=== PATIENT | male | born 1945 | race Caucasian/White ===

== ENCOUNTER 2022-06-04 13:17 | Emergency (ER) | payer OTHER ==
--- OUTSIDE RECORDS SUMMARY | 2022-06-04 13:24 | XMS REPORT | Continuity of Care Document ---
:1945 Author Organization [facility] t Address [address] [place] [address] Care Team Providers Name Role Phone PRASHANTH BENAVIDES Primary Care Physician Unavailable Prashanth Benavides Attending Clinician Unavailable ANNE-MARIE WOODWARD Attending Clinician Unavailable MELISSA VILLEGAS Attending Clinician Unavailable RUPALI BYRNE Attending Clinician Unavailable PABLO SANABRIA Attending Clinician Unavailable CHUCK LEARY Attending Clinician Unavailable ANNE-MARIE WOODWARD Admitting Clinician Unavailable MELISSA VILLEGAS Admitting Clinician Unavailable Payers Payer Name Policy Type Policy Number Effective Date Expiration Date S alyssa AET[employer] MEDICARE HMO [id number] 2016 POS PPO 00:00:00 Problems Condition Condition Condition Status Onset Resolution Last Treating Co mments Source Name Details Category Date Date Treatment Clinician Date Chronic Chronic Disease Active 2018- [facility] hypercapni hypercapni 2-14 Lydia kes c c 00:00: Medical respirator respirator 00 Ce nter y failure y failure Acute Acute Disease Active 2019- [facility] diastolic diastolic 2-14 Luke s congestive congestive 00:00: Ks dical heart heart 00 Center failure failure Atrial Atrial Disease Active 2018- [facility] fibrillati fibrillati 2-13 Lydia kes on on 00:00: Medical 00 Center Gastrointe Gastrointe Disease Active 2018-0 M ethodi stinal stinal 4-20 st hemorrhage hemorrhage 00:00: Ho spita 00 l AAA AAA Disease Active [facility] (abdominal (abdominal 6-21 Lydia kes aortic aortic 00:00: Medical aneurysm) aneurysm) 00 Cent er AAA AAA Disease Active [facility] (abdominal (abdominal 6-20 Lydia kes aortic aortic 00:00: Medical aneurysm) aneurysm) 00 Cent er without without rupture rupture 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 [facility] artery artery 00:00: Medical 00 Potter RBBB RBBB Disease Active [facility] 6-20 [facility] 00:00: Medical 00 [place] Essential Essential Disease Active [facility] hypertensi hypertensi 6-20 Lydia kes on on 00:00: Medical 00 Potter [id number] Pain, Problem Active Commo n [id number] joint, Spirit shoulder, - [facility] left [facility] Allergies, Adverse Reactions, Alerts Allergy Allergy Status Severity Reaction(s) Onset Inactive Treating Comm ents Source Name Type Date Date Clinician Atorvast Propensi Active Muscle Method i atin ty to 01-[address] adverse 00:00: Hospita reaction 00 l s to drug NO KNOWN Allergy Active [facility] Social History Social Habit Start Date Stop Date Quantity Comments Source History SDOH [facility] Alcohol Std Drinks Medica l Center History SDOH [facility] Alcohol Binge Medical Dereck ter History SDOH [facility] Alcohol Comment Medical C enter History of Tobacco Common Spirit - Use [facility] Alcohol intake 2018-06-14 2018-06-[address] [facility] [address] Servando es 00:00:00 00:00:00 non-drinker of Medical Ce nter alcohol (finding) History SDOH 2018-06-14 2018-06-[address] [facility] Alcohol Frequency 00:00:00 00:00:00 [facility] Cigarettes smoked 2017-11-16 2017-11-[address] current (pack per 00:00:00 00:00:00 Hospita l day) - Reported Cigarette 2017-11-16 2017-11-16 [facility] pack-years 00:00:00 00:00:00 Hospital Tobacco use and 2016-01-28 2016-01-[address] Lydia kes exposure 00:00:00 00:00:00 Medical Center Sex Ass[birth year] At [birth year] KODI Oakes 00:00:00 00:00:00 [facility] Smoking Status Start Date Stop Date Source Former Smoker 2022-04-16 00:00:00 2022-04-16 00:00:00 Common S pirit - [facility] Medications Ordered Filled Start Stop Current Ordering Indication Dosage Frequency Signature Comments Components Source Medication Medication Date Date Medication? Clinician (SIG) Name Name irbesartan Yes 150mg Q.5D Take 150 Me thodi (AVAPRO) 3-[address] 150 MG 08:33: mouth 2 Hospita tablet 04 (two) l times a day. amLODIPine Yes 10mg QD Take 10 mg M ethodi (NORVASC) 5 3-[address] MG tablet 08:33: daily. Hospit a 04 l GLUCOSAMINE Yes 1{tbl} QD Take 1 Me thodi SULFATE 3-[address] (GLUCOSAMIN 08:33: mouth Hospi ta E ORAL) 04 daily. l cholecalcif Yes 1000U QD Take 1,000 Methodi cleo, 3-[address] vitamin D3, 08:33: mouth Hospi ta (VITAMIN 04 daily. l D3) 1,000 unit tablet amIODarone Yes 200mg QD Take 200 Me thodi (PACERONE) 3-[address] 200 MG 08:33: mouth Hospita tablet 04 daily. l furosemide Yes QD Take by Meth estiven (LASIX) 40 3-[address] mg/4 mL 08:33: daily. Hospita solution 04 l oral solution metoprolol Yes 25mg Q.5D Take 25 mg M ethodi tartrate 3-[address] (LOPRESSOR) 08:33: (two) Hospi ta 25 mg 04 times a l tablet day. potassium Yes 20meq Q.5D Take 20 Meth estiven chloride 3-[address] (KLOR-CON) 08:33: mouth 2 Hosp olegario 20 mEq 04 (two) l packet times a day. Take tablet 20 meq pravastatin Yes 20mg QD Take 20 mg Methodi (PRAVACHOL) 3-[address] 20 MG 08:33: nightly. Hospita tablet 04 l MULTIVITAMI Yes QD Take by Met hodi N ORAL 3-[address] 08:33: daily. Hospita 04 l pravastatin 2018-08 Yes 20mg QD Take [address] (PRAVACHOL) 2-20 by mouth Luke s 20 MG 13:54: daily. Medical tablet 34 Center aspirin 81 2018-08 Yes 81mg QD Take [address] MG chewable 2-20 by mouth Luke s tablet 13:54: daily. Medical 34 Center omega-3 2018-08 Yes 2g Q.5D Take [address] acid ethyl 2-20 by mouth 2 Servando es esters 13:54: (two) Medical (LOVAZA) 1 34 times Center gram daily. capsule multivitami 2018-08 Yes 1{capsu QD Take [address] n capsule 2-20 le} capsule by Jesus Manuel s 13:54: mouth Medical 34 daily. Center glucosamine 2018-08 Yes 1{tbl} Q.[id number] Take [address] -chondroiti 2-20 [id number] tablet by Varun n 500-400 13:54: 3D mouth 3 Medic al mg tablet 34 (three) Center times daily. cholecalcif 2018-08 Yes 1000U QD Take 1,[address] cleo 2-20 Units by Varun (VITAMIN 13:54: mouth Medical D3) 1,000 34 daily. Center unit (25 mcg) tablet Vitamin D Vitamin D No Vitamin D Potassium Potassium No Potassium Furosemide Furosemide No Furosemide Apixaban Apixaban No Apixaban Repatha Repatha No Repatha Glucosamine Glucosamine No Glucosamin e ASA-APAP-Ca ASA-APAP-Ca No ASA-APAP-C ff Buffered ff Buffered aff Buffered Amiodarone Amiodarone No Amiodarone HCl HCl HCl amLODIPine amLODIPine No amLODIPine Benzoate Benzoate Benzoate Glucosamine Glucosamine No Glucosamin e ASA-APAP-Ca ASA-APAP-Ca No ASA-APAP-C ff Buffered ff Buffered aff Buffered amLODIPine amLODIPine No amLODIPine Benzoate Benzoate Benzoate Furosemide Furosemide No Furosemide Potassium Potassium No Potassium Amiodarone Amiodarone No Amiodarone HCl HCl HCl Vitamin D Vitamin D No Vitamin D Apixaban Apixaban No Apixaban Repatha Repatha No Repatha Vital Signs Vital Name Observation Time Observation Value Comments Source height 2022-04-15 15:15:00 74 [in_i] Common [facility] weight 2022-04-15 15:15:00 220 [lb_av] [facility] temperature 2022-04-15 15:15:00 98.1 [degF] [facility] bmi 2022-04-15 15:15:00 28.24 kg/m2 Common [facility] blood pressure 2022-04-15 15:15:00 136 mm[Hg] [facility] - systolic [facility] blood pressure 2022-04-15 15:15:00 80 mm[Hg] [facility] - diastolic [facility] height 2022-03-25 15:00:00 74 [in_i] [facility] weight 2022-03-25 15:00:00 220 [lb_av] [facility] temperature 2022-03-25 15:00:00 98.6 [degF] [facility] bmi 2022-03-25 15:00:00 28.24 kg/m2 [facility] blood pressure 2022-03-25 15:00:00 136 mm[Hg] [facility] - systolic [facility] blood pressure 2022-03-25 15:00:00 82 mm[Hg] [facility] - diastolic [facility] Procedures This patient has no known procedures. Plan of Care Planned Activity Planned Date Details Comments Source Future Scheduled 2022-04-09 INFLUENZA VACCINE (#1) [facility] 00:00:00 [code = INFLUENZA Medical Ce nter VACCINE (#1)] Future Scheduled 2021-08-[address] [facility] Test 00:00:00 (12+) [code = Medical Center DEPRESSION SCREENING (12+)] Future Scheduled 2021-08-09 FALLS RISK SCREENING [facility] Test 00:00:00 [code = FALLS RISK Medical C enter SCREENING] Future Scheduled 2017-08-[address] [facility] Test 00:00:00 WELLNESS (YEAR 2 or Medical Center FIRST YEAR if no IPPE) [code = MEDICARE ANNUAL WELLNESS (YEAR 2 or FIRST YEAR if no IPPE)] Future Scheduled 1994 SHINGLES VACCINES ([address] [facility] Test 00:00:00 of 2) [code = SHINGLES Medic al Center VACCINES (1 of 2)] Future Scheduled 1963 DTAP/TDAP/TD VACCINES [facility] Test 00:00:00 (1 - Tdap) [code = Medical C enter DTAP/TDAP/TD VACCINES (1 - Tdap)] Future Scheduled 1962 HEPATITIS C SCREENING [facility] Test 00:00:00 [code = HEPATITIS C Medical Center SCREENING] Future Scheduled 1950 PNEUMOCOCCAL 65+ YRS [facility] Test 00:00:00 (1 - PCV) [code = Medical Ce nter PNEUMOCOCCAL 65+ YRS (1 - PCV)] Future Scheduled 1944 COVID-19 VACCINE (#1) [facility] Test 00:00:00 [code = COVID-[address] VACCINE (#1)] Encounters Start End Encounter Admission Attending Care Care Encounter Source Date/Time Date/Time Type Type Clinicians Facility Department ID 2022-03-27 Outpatient Benavides, STLMLC STLMLC [id number] Common 08:16:02 Prashanth [id number] [facility] 2022-03-25 Outpatient STLMLC STLMLC [id number] Common 14:49:01 [id number] [facility] 2022-04-15 2022-04-15 OFFICE STLMLC STLMLC [id number] Co mmon 00:00:00 00:00:00 VISIT EST Spir it PT LEVEL 3 [facility] 2022-03-25 2022-03-25 OFFICE STLMLC STLMLC [id number] Co mmon 00:00:00 00:00:00 VISIT EST Spir it PT LEVEL 3 [facility] 2020-10-21 2020-10-21 Outpatient [facility] [id number] [place] 00:00:00 00:00:00 ANNE-MARIE [place] i st 2018-10-19 2018-10-19 Outpatient [facility] [id number] SLE 00:00:00 00:00:00 Results Test Description Test Time Test Comments Results Result Comments Source PHOSPHORUS 2019-07-28 06:12:00 Test Item Value Reference Range Interpretation Comme nts PHOSPHORUS (BEAKER) (test code = 604) 2.9 mg/dL 2.3-4.7 [id number] 06:12:00 Test Item Value Reference Range Interpretation Comments MAGNESIUM (BEAKER) (test code = 2.1 mg/dL 1.6-2.6 627) BASIC METABOLIC [id number] 06:12:00 Test Item Value Reference Range Interpretation Comments SODIUM (BEAKER) 142 meq/L 136-145 (test code = 381) POTASSIUM (BEAKER) 4.5 meq/L 3.5-5.1 (test code = 379) CHLORIDE (BEAKER) 101 meq/L 98-107 (test code = 382) CO2 (BEAKER) (test 32 meq/L 22-29 H code = 355) BLOOD UREA NITROGEN 27 mg/dL 7-21 H (BEAKER) (test code = 354) CREATININE (BEAKER) 0.82 mg/dL 0.57-1.25 (test code = 358) GLUCOSE RANDOM 93 mg/dL 70-105 (BEAKER) (test code = 652) CALCIUM (BEAKER) 8.8 mg/dL 8.4-10.2 (test code = 697) EGFR (BEAKER) (test 92 mL/min/1.73 ESTIMA JERE GFR IS code = 1092) sq m NOT ACCURATE CREATININE CLEARANCE IN PREDICTING GLOMERULAR FILTRATION RATE . ESTIMATED GFR I S NOT APPLICABLE FOR DIALYSIS PATIEN TS. CBC W/PLT COUNT & AUTO [id number] 06:00:00 Test Item Value Reference Range Interpretation Comments WHITE BLOOD CELL COUNT (BEAKER) 5.6 K/ L 3.5-10.5 (test code = 775) RED BLOOD CELL COUNT (BEAKER) 3.85 M/ L 4.63-6.08 L (test code = 761) HEMOGLOBIN (BEAKER) (test code = 13.1 GM/DL 13.7-17.5 L 410) HEMATOCRIT (BEAKER) (test code = 42.4 % 40.1-51.0 411) MEAN CORPUSCULAR VOLUME (BEAKER) 110.1 fL 79.0-92.2 H (test code = 753) MEAN CORPUSCULAR HEMOGLOBIN 34.0 pg 25.7-32.2 H (BEAKER) (test code = 751) MEAN CORPUSCULAR HEMOGLOBIN CONC 30.9 GM/DL 32.3-36.5 L (BEAKER) (test code = 752) RED CELL DISTRIBUTION WIDTH 13.7 % 11.6-14.4 (BEAKER) (test code = 412) PLATELET COUNT (BEAKER) (test 179 K/CU MM 150-450 code = 756) MEAN PLATELET VOLUME (BEAKER) 11.6 fL 9.4-12.4 (test code = 754) NUCLEATED RED BLOOD CELLS 0 /100 WBC 0-0 (BEAKER) (test code = 413) NEUTROPHILS RELATIVE PERCENT 58 % (BEAKER) (test code = 429) LYMPHOCYTES RELATIVE PERCENT 19 % (BEAKER) (test code = 430) MONOCYTES RELATIVE PERCENT 14 % (BEAKER) (test code = 431) EOSINOPHILS RELATIVE PERCENT 8 % (BEAKER) (test code = 432) BASOPHILS RELATIVE PERCENT 1 % (BEAKER) (test code = 437) NEUTROPHILS ABSOLUTE COUNT 3.27 K/ L 1.78-5.38 (BEAKER) (test code = 670) LYMPHOCYTES ABSOLUTE COUNT 1.08 K/ L 1.32-3.57 L (BEAKER) (test code = 414) MONOCYTES ABSOLUTE COUNT (BEAKER) 0.76 K/ L 0.30-0.82 (test code = 415) EOSINOPHILS ABSOLUTE COUNT 0.44 K/ L 0.04-0.54 (BEAKER) (test code = 416) BASOPHILS ABSOLUTE COUNT (BEAKER) 0.06 K/ L 0.01-0.08 (test code = 417) IMMATURE GRANULOCYTES-RELATIVE 0 % 0-1 PERCENT (BEAKER) (test code = 2801) [id number] 06:07:00 Test Item Value Reference Range Interpretation Comments MAGNESIUM (BEAKER) 2.0 mg/dL 1.6-2.6 Specimen slightly (test code = 627) hemolyzed [id number] 06:07:00 Test Item Value Reference Range Interpretation Comments PHOSPHORUS (BEAKER) 3.0 mg/dL 2.3-4.7 Specimen slightly (test code = 604) hemolyzed BASIC METABOLIC [id number] 06:07:00 Test Item Value Reference Range Interpretation Comments SODIUM (BEAKER) 139 meq/L 136-145 (test code = 381) POTASSIUM (BEAKER) 4.8 meq/L 3.5-5.1 Specimen slightly (test code = 379) hemolyzed CHLORIDE (BEAKER) 98 meq/L 98-107 (test code = 382) CO2 (BEAKER) (test 34 meq/L 22-29 H code = 355) BLOOD UREA NITROGEN 28 mg/dL 7-21 H (BEAKER) (test code = 354) CREATININE (BEAKER) 0.96 mg/dL 0.57-1.25 Specimen slightly (test code = 358) hemolyzed GLUCOSE RANDOM 101 mg/dL 70-105 (BEAKER) (test code = 652) CALCIUM (BEAKER) 8.5 mg/dL 8.4-10.2 (test code = 697) EGFR (BEAKER) (test 76 mL/min/1.73 ESTIMA JERE GFR IS code = 1092) sq m NOT ACCURATE CREATININE CLEARANCE IN PREDICTING GLOMERULAR FILTRATION RATE . ESTIMATED GFR I S NOT APPLICABLE FOR DIALYSIS PATIEN TS. CBC W/PLT COUNT & AUTO [id number] 05:34:00 Test Item Value Reference Range Interpretation Comments WHITE BLOOD CELL COUNT (BEAKER) 6.9 K/ L 3.5-10.5 (test code = 775) RED BLOOD CELL COUNT (BEAKER) 3.77 M/ L 4.63-6.08 L (test code = 761) HEMOGLOBIN (BEAKER) (test code = 12.8 GM/DL 13.7-17.5 L 410) HEMATOCRIT (BEAKER) (test code = 41.6 % 40.1-51.0 411) MEAN CORPUSCULAR VOLUME (BEAKER) 110.3 fL 79.0-92.2 H (test code = 753) MEAN CORPUSCULAR HEMOGLOBIN 34.0 pg 25.7-32.2 H (BEAKER) (test code = 751) MEAN CORPUSCULAR HEMOGLOBIN CONC 30.8 GM/DL 32.3-36.5 L (BEAKER) (test code = 752) RED CELL DISTRIBUTION WIDTH 13.8 % 11.6-14.4 (BEAKER) (test code = 412) PLATELET COUNT (BEAKER) (test 183 K/CU MM 150-450 code = 756) MEAN PLATELET VOLUME (BEAKER) 11.3 fL 9.4-12.4 (test code = 754) NUCLEATED RED BLOOD CELLS 0 /100 WBC 0-0 (BEAKER) (test code = 413) NEUTROPHILS RELATIVE PERCENT 62 % (BEAKER) (test code = 429) LYMPHOCYTES RELATIVE PERCENT 17 % (BEAKER) (test code = 430) MONOCYTES RELATIVE PERCENT 14 % (BEAKER) (test code = 431) EOSINOPHILS RELATIVE PERCENT 6 % (BEAKER) (test code = 432) BASOPHILS RELATIVE PERCENT 1 % (BEAKER) (test code = 437) NEUTROPHILS ABSOLUTE COUNT 4.30 K/ L 1.78-5.38 (BEAKER) (test code = 670) LYMPHOCYTES ABSOLUTE COUNT 1.17 K/ L 1.32-3.57 L (BEAKER) (test code = 414) MONOCYTES ABSOLUTE COUNT (BEAKER) 0.96 K/ L 0.30-0.82 H (test code = 415) EOSINOPHILS ABSOLUTE COUNT 0.42 K/ L 0.04-0.54 (BEAKER) (test code = 416) BASOPHILS ABSOLUTE COUNT (BEAKER) 0.06 K/ L 0.01-0.08 (test code = 417) IMMATURE GRANULOCYTES-RELATIVE 0 % 0-1 PERCENT (BEAKER) (test code = 2801) POCT-LACTIC ACID, [id number] 13:15:00 Test Item Value Reference Range Interpretation Comments POC-LACTIC ACID, 1.2 mmol/L 0.4-1.3 TESTED AT [facility] [address] ARTERIAL (BEAKER[facility] [place] (test code = 2804) [address] POCT-BLOOD GASES, [id number] 13:15:00 Test Item Value Reference Range Interpretation Comments TEMP, CELSIUS-POC 37.0 (BEAKER) (test code = 1834) FIO2-POC (BEAKER) TESTED AT [facility] 67[address] (test code = 1835) [facility] [address] PH, ARTERIAL-POC 7.420 7.350-7.450 (BEAKER) (test code = 1836) PCO2, ARTERIAL-POC 62.0 mm Hg 35.0-45.0 H (BEAKER) (test code = 1837) PO2, ARTERIAL-POC 66.0 mm Hg 80.0-90.0 L (BEAKER) (test code = 1838) SO2, ARTERIAL-POC 92.0 % 96.0-97.0 L (BEAKER) (test code = 1839) HCO3, ARTERIAL-POC 40.3 meq/L 21.0-29.0 HH (BEAKER) (test code = 1840) BASE EXCESS, 16.0 meq/L -2.0-3.0 H ARTERIAL-POC (BEAKER) (test code = 1841) [id number] 13:15:00 Test Item Value Reference Range Interpretation Comments POC-SODIUM (BEAKER) 138 meq/L 135-148 TESTED A T [place] [address] (test code = 1542) DONA [facility] [address] [id number] 13:15:00 Test Item Value Reference Range Interpretation Comments POC-POTASSIUM 3.8 meq/L 3.6-5.5 TESTED AT [place] [address] ([facility] (test code [facility] [address] = 1540) [id number] 13:15:00 Test Item Value Reference Range Interpretation Comments POC-GLUCOSE (BEAKER) 166 mg/dL 70-110 H TESTED AT [place] [address] (test code = 1855) [place] [address] POCT-CALCIUM [id number] 13:15:00 Test Item Value Reference Range Interpretation Comments POC-CALCIUM IONIZED 1.16 mmol/L 1.12-1.27 TESTED A [place] [address] ([facility] (test code = [facility] [place] [address]) [address] [id number] 13:15:00 Test Item Value Reference Range Interpretation Comments POC-HEMATOCRIT 42 % 40-50 TESTED AT [place] [address] ([facility] (test code = [facility] Aleksandar [facility] [address]) [id number] 13:15:00 Test Item Value Reference Range Interpretation Comments POC-HEMOGLOBIN 14.3 g/dL 13.0-16.8 TESTED AT [place] [address] ([facility] ([facility] = 1856) [id number] AT [place] [address] [facility] [place] [address] BASIC METABOLIC [id number] 05:16:00 Test Item Value Reference Range Interpretation Comments SODIUM (BEAKER) 144 meq/L 136-145 (test code = 381) POTASSIUM (BEAKER) 4.2 meq/L 3.5-5.1 (test code = 379) CHLORIDE (BEAKER) 97 meq/L 98-107 L (test code = 382) CO2 (BEAKER) (test 41 meq/L 22-29 HH code = 355) BLOOD UREA NITROGEN 26 mg/dL 7-21 H (BEAKER) (test code = 354) CREATININE (BEAKER) 0.91 mg/dL 0.57-1.25 (test code = 358) GLUCOSE RANDOM 107 mg/dL 70-105 H (BEAKER) (test code = 652) CALCIUM (BEAKER) 8.7 mg/dL 8.4-10.2 (test code = 697) EGFR (BEAKER) (test 81 mL/min/1.73 ESTIMA JERE GFR IS code = 1092) sq m NOT ACCURATE CREATININE CLEARANCE IN PREDICTING GLOMERULAR FILTRATION RATE . ESTIMATED GFR I S NOT APPLICABLE FOR DIALYSIS YULI TS. [id number] 05:07:00 Test Item Value Reference Range Interpretation Comments PHOSPHORUS (BEAKER) (test code = 3.8 mg/dL 2.3-4.7 604) [id number] 05:07:00 Test Item Value Reference Range Interpretation Comments MAGNESIUM (BEAKER) (test code = 2.1 mg/dL 1.6-2.6 627) CBC W/PLT COUNT & AUTO [id number] 04:53:00 Test Item Value Reference Range Interpretation Comments WHITE BLOOD CELL COUNT (BEAKER) 7.3 K/ L 3.5-10.5 (test code = 775) RED BLOOD CELL COUNT (BEAKER) 3.88 M/ L 4.63-6.08 L (test code = 761) HEMOGLOBIN (BEAKER) (test code = 13.3 GM/DL 13.7-17.5 L 410) HEMATOCRIT (BEAKER) (test code = 42.8 % 40.1-51.0 411) MEAN CORPUSCULAR VOLUME (BEAKER) 110.3 fL 79.0-92.2 H (test code = 753) MEAN CORPUSCULAR HEMOGLOBIN 34.3 pg 25.7-32.2 H (BEAKER) (test code = 751) MEAN CORPUSCULAR HEMOGLOBIN CONC 31.1 GM/DL 32.3-36.5 L (BEAKER) (test code = 752) RED CELL DISTRIBUTION WIDTH 13.9 % 11.6-14.4 (BEAKER) (test code = 412) PLATELET COUNT (BEAKER) (test 171 K/CU MM 150-450 code = 756) MEAN PLATELET VOLUME (BEAKER) 11.0 fL 9.4-12.4 (test code = 754) NUCLEATED RED BLOOD CELLS 0 /100 WBC 0-0 (BEAKER) (test code = 413) NEUTROPHILS RELATIVE PERCENT 66 % (BEAKER) (test code = 429) LYMPHOCYTES RELATIVE PERCENT 14 % (BEAKER) (test code = 430) MONOCYTES RELATIVE PERCENT 15 % (BEAKER) (test code = 431) EOSINOPHILS RELATIVE PERCENT 4 % (BEAKER) (test code = 432) BASOPHILS RELATIVE PERCENT 1 % (BEAKER) (test code = 437) NEUTROPHILS ABSOLUTE COUNT 4.82 K/ L 1.78-5.38 (BEAKER) (test code = 670) LYMPHOCYTES ABSOLUTE COUNT 1.02 K/ L 1.32-3.57 L (BEAKER) (test code = 414) MONOCYTES ABSOLUTE COUNT (BEAKER) 1.05 K/ L 0.30-0.82 H (test code = 415) EOSINOPHILS ABSOLUTE COUNT 0.31 K/ L 0.04-0.54 (BEAKER) (test code = 416) BASOPHILS ABSOLUTE COUNT (BEAKER) 0.05 K/ L 0.01-0.08 (test code = 417) IMMATURE GRANULOCYTES-RELATIVE 0 % 0-1 PERCENT (BEAKER) (test code = 2801) [id number] 04:52:00 Test Item Value Reference Range Interpretation Comments PARTIAL THROMBOPLASTIN TIME 72.6 seconds 22.5-36.0 H (BEAKER) (test code = 760) RAD, HAND, 2 VIEWS, [id number] 01:39:00Reason for exam:->Rt index finger swellingFINAL REPORT CLINICAL HISTORY: Rt index finger swelling TECHNIQUE: 2 views of the right hand COMPARISON: None IMPRESSION: The bones of the hand are intact without evidence of fracture or dislocation. Scattered degenerative changes of the hand, most notably in the IP joints. Slightoffset of the second digit DIP with widening of the ulnar aspect of the joint space likely degenerative however correlate clinically this could be posttraumatic. Soft tissue swelling about the second digit. No radiopaque foreign body. Normal bone mineralization. Signed: Osmin Schaeffer Verified Date/Time: 07/26/2019 01:39:05 [id number] 21:56:00 Test Item Value Reference Range Interpretation Comments PARTIAL THROMBOPLASTIN TIME 75.0 seconds 22.5-36.0 H (BEAKER) (test code = 760) [id number] 13:56:00 Test Item Value Reference Range Interpretation Comments PARTIAL THROMBOPLASTIN TIME 94.1 seconds 22.5-36.0 H (BEAKER) (test code = 760) [id number] 05:50:00 Test Item Value Reference Range Interpretation Comments PARTIAL THROMBOPLASTIN TIME 91.3 seconds 22.5-36.0 H (BEAKER) (test code = 760) BASIC METABOLIC [id number] 05:44:00 Test Item Value Reference Range Interpretation Comments SODIUM (BEAKER) 142 meq/L 136-145 (test code = 381) POTASSIUM (BEAKER) 3.6 meq/L 3.5-5.1 (test code = 379) CHLORIDE (BEAKER) 93 meq/L 98-107 L (test code = 382) CO2 (BEAKER) (test 40 meq/L 22-29 HH code = 355) BLOOD UREA NITROGEN 24 mg/dL 7-21 H (BEAKER) (test code = 354) CREATININE (BEAKER) 0.94 mg/dL 0.57-1.25 (test code = 358) GLUCOSE RANDOM 108 mg/dL 70-105 H (BEAKER) (test code = 652) CALCIUM (BEAKER) 8.9 mg/dL 8.4-10.2 (test code = 697) EGFR (BEAKER) (test 78 mL/min/1.73 ESTIMA JERE GFR IS code = 1092) sq m NOT ACCURATE CREATININE CLEARANCE IN PREDICTING GLOMERULAR FILTRATION RATE . ESTIMATED GFR I S NOT APPLICABLE FOR DIALYSIS PATIEN TS. URIC [id number] 05:37:00 Test Item Value Reference Range Interpretation Comments URIC ACID (BEAKER) (test code = 8.5 mg/dL 2.6-7.2 H 773) [id number] 05:37:00 Test Item Value Reference Range Interpretation Comments MAGNESIUM (BEAKER) (test code = 2.0 mg/dL 1.6-2.6 627) [id number] 05:37:00 Test Item Value Reference Range Interpretation Comments PHOSPHORUS (BEAKER) (test code = 3.7 mg/dL 2.3-4.7 604) CBC W/PLT COUNT & AUTO [id number] 05:34:00 Test Item Value Reference Range Interpretation Comments WHITE BLOOD CELL COUNT (BEAKER) 9.7 K/ L 3.5-10.5 (test code = 775) RED BLOOD CELL COUNT (BEAKER) 3.93 M/ L 4.63-6.08 L (test code = 761) HEMOGLOBIN (BEAKER) (test code = 13.5 GM/DL 13.7-17.5 L 410) HEMATOCRIT (BEAKER) (test code = 43.3 % 40.1-51.0 411) MEAN CORPUSCULAR VOLUME (BEAKER) 110.2 fL 79.0-92.2 H (test code = 753) MEAN CORPUSCULAR HEMOGLOBIN 34.4 pg 25.7-32.2 H (BEAKER) (test code = 751) MEAN CORPUSCULAR HEMOGLOBIN CONC 31.2 GM/DL 32.3-36.5 L (BEAKER) (test code = 752) RED CELL DISTRIBUTION WIDTH 13.8 % 11.6-14.4 (BEAKER) (test code = 412) PLATELET COUNT (BEAKER) (test 196 K/CU MM 150-450 code = 756) MEAN PLATELET VOLUME (BEAKER) 10.9 fL 9.4-12.4 (test code = 754) NUCLEATED RED BLOOD CELLS 0 /100 WBC 0-0 (BEAKER) (test code = 413) NEUTROPHILS RELATIVE PERCENT 70 % (BEAKER) (test code = 429) LYMPHOCYTES RELATIVE PERCENT 14 % (BEAKER) (test code = 430) MONOCYTES RELATIVE PERCENT 14 % (BEAKER) (test code = 431) EOSINOPHILS RELATIVE PERCENT 2 % (BEAKER) (test code = 432) BASOPHILS RELATIVE PERCENT 0 % (BEAKER) (test code = 437) NEUTROPHILS ABSOLUTE COUNT 6.73 K/ L 1.78-5.38 H (BEAKER) (test code = 670) LYMPHOCYTES ABSOLUTE COUNT 1.31 K/ L 1.32-3.57 L (BEAKER) (test code = 414) MONOCYTES ABSOLUTE COUNT (BEAKER) 1.37 K/ L 0.30-0.82 H (test code = 415) EOSINOPHILS ABSOLUTE COUNT 0.20 K/ L 0.04-0.54 (BEAKER) (test code = 416) BASOPHILS ABSOLUTE COUNT (BEAKER) 0.04 K/ L 0.01-0.08 (test code = 417) IMMATURE GRANULOCYTES-RELATIVE 0 % 0-1 PERCENT (BEAKER) (test code = 2801) CT, [id number] 14:00:00Oral contrastAnesthesia:->NoneFINAL REPORT ABDOMINAL AND PELVIS CT DATED 07/24/2019 COMPARISON: July 20, 2018 CLINICAL INFORMATION: AAA, monitoring TECHNIQUE: Axial images of the abdomen and pelvis were obtained from diaphragm to the pubic symphysis with GI and intravenous contrast. This exam was performedaccording to our departmental dose-optimization program, which includes automated exposure control, adjustment of the mA and/or kV according to patient size and/or use of interactive reconstruction technique. COMMENT: There is trace left pleural effusion. Subsegmental atelectasis is seen in the lingula, right mid, and both lower lobes. Liver and spleen are normal in size without focal abnormality. Gal lbladder is distended. No gallstone or biliary dilatation is noted. Pancreas and adrenals are unremarkable. Both kidneys are normal in size and functioning. No hydronephrosis, hydroureter, urolithiasisis seen. A 3.8 x 4.7 cm and 1.1 x 1.6 cm cysts are seen in the upper pole right kidney. A 1.7 x 1.6 cm cyst is seen in the inferior pole right kidney. Diverticular disease is seen in the large bowel without diverticulitis. The small bowel and appendix are normal in caliber. Abdominal aortic aneurysm is present with aortobiiliac iliac and the stent. Abdominal aortic aneurysm measures approximately 3.8x 4.4 cm, previously 3.8 x 4.4 cm. No endovascular leak is seen. This is stable as compared to the prior study. No mass, adenopathy or ascites is present. IMPRESSION: 1. Stable abdominal aortic aneurysm with aortobiiliac stent.2. No abdominal aortic endostent leak.3. Diverticulosis without diverticulitis.4. Right renal cysts. Signed: Lou Singer MDReport Verified Date/Time: 07/24/2019 14:00:02 Reading Location: [facility] C013Y CT Body Reading Room BASIC METABOLIC [id number] 06:43:00 Test Item Value Reference Range Interpretation Comments SODIUM (BEAKER) 140 meq/L 136-145 (test code = 381) POTASSIUM (BEAKER) 3.6 meq/L 3.5-5.1 (test code = 379) CHLORIDE (BEAKER) 94 meq/L 98-107 L (test code = 382) CO2 (BEAKER) (test 35 meq/L 22-29 H code = 355) BLOOD UREA NITROGEN 22 mg/dL 7-21 H (BEAKER) (test code = 354) CREATININE (BEAKER) 0.99 mg/dL 0.57-1.25 (test code = 358) GLUCOSE RANDOM 99 mg/dL 70-105 (BEAKER) (test code = 652) CALCIUM (BEAKER) 8.9 mg/dL 8.4-10.2 (test code = 697) EGFR (BEAKER) (test 74 mL/min/1.73 ESTIMA JERE GFR IS code = 1092) sq m NOT ACCURATE CREATININE CLEARANCE IN PREDICTING GLOMERULAR FILTRATION RATE . ESTIMATED GFR I S NOT APPLICABLE FOR DIALYSIS PATIEN TS. [id number] 04:51:00 Test Item Value Reference Range Interpretation Comments PHOSPHORUS (BEAKER) (test code = 3.6 mg/dL 2.3-4.7 604) [id number] 04:51:00 Test Item Value Reference Range Interpretation Comments MAGNESIUM (BEAKER) (test code = 1.9 mg/dL 1.6-2.6 627) BASIC METABOLIC [id number] 04:51:00 Test Item Value Reference Range Interpretation Comments SODIUM (BEAKER) 139 meq/L 136-145 (test code = 381) POTASSIUM (BEAKER) 3.6 meq/L 3.5-5.1 (test code = 379) CHLORIDE (BEAKER) 92 meq/L 98-107 L (test code = 382) CO2 (BEAKER) (test 36 meq/L 22-29 H code = 355) BLOOD UREA NITROGEN 23 mg/dL 7-21 H (BEAKER) (test code = 354) CREATININE (BEAKER) 1.02 mg/dL 0.57-1.25 (test code = 358) GLUCOSE RANDOM 97 mg/dL 70-105 (BEAKER) (test code = 652) CALCIUM (BEAKER) 8.8 mg/dL 8.4-10.2 (test code = 697) EGFR (BEAKER) (test 71 mL/min/1.73 ESTIMA JERE GFR IS code = 1092) sq m NOT ACCURATE CREATININE CLEARANCE IN PREDICTING GLOMERULAR FILTRATION RATE . ESTIMATED GFR I S NOT APPLICABLE FOR DIALYSIS PATILANEY CORRIGAN [id number] 04:20:00 Test Item Value Reference Range Interpretation Comments PARTIAL THROMBOPLASTIN TIME 79.6 seconds 22.5-36.0 H (BEAKER) (test code = 760) CBC W/PLT COUNT & AUTO [id number] 04:09:00 Test Item Value Reference Range Interpretation Comments WHITE BLOOD CELL COUNT (BEAKER) 10.2 K/ L 3.5-10.5 (test code = 775) RED BLOOD CELL COUNT (BEAKER) 3.97 M/ L 4.63-6.08 L (test code = 761) HEMOGLOBIN (BEAKER) (test code = 13.4 GM/DL 13.7-17.5 L 410) HEMATOCRIT (BEAKER) (test code = 43.4 % 40.1-51.0 411) MEAN CORPUSCULAR VOLUME (BEAKER) 109.3 fL 79.0-92.2 H (test code = 753) MEAN CORPUSCULAR HEMOGLOBIN 33.8 pg 25.7-32.2 H (BEAKER) (test code = 751) MEAN CORPUSCULAR HEMOGLOBIN CONC 30.9 GM/DL 32.3-36.5 L (BEAKER) (test code = 752) RED CELL DISTRIBUTION WIDTH 13.8 % 11.6-14.4 (BEAKER) (test code = 412) PLATELET COUNT (BEAKER) (test 193 K/CU MM 150-450 code = 756) MEAN PLATELET VOLUME (BEAKER) 10.8 fL 9.4-12.4 (test code = 754) NUCLEATED RED BLOOD CELLS 0 /100 WBC 0-0 (BEAKER) (test code = 413) NEUTROPHILS RELATIVE PERCENT 72 % (BEAKER) (test code = 429) LYMPHOCYTES RELATIVE PERCENT 12 % (BEAKER) (test code = 430) MONOCYTES RELATIVE PERCENT 13 % (BEAKER) (test code = 431) EOSINOPHILS RELATIVE PERCENT 2 % (BEAKER) (test code = 432) BASOPHILS RELATIVE PERCENT 1 % (BEAKER) (test code = 437) NEUTROPHILS ABSOLUTE COUNT 7.30 K/ L 1.78-5.38 H (BEAKER) (test code = 670) LYMPHOCYTES ABSOLUTE COUNT 1.25 K/ L 1.32-3.57 L (BEAKER) (test code = 414) MONOCYTES ABSOLUTE COUNT (BEAKER) 1.31 K/ L 0.30-0.82 H (test code = 415) EOSINOPHILS ABSOLUTE COUNT 0.24 K/ L 0.04-0.54 (BEAKER) (test code = 416) BASOPHILS ABSOLUTE COUNT (BEAKER) 0.05 K/ L 0.01-0.08 (test code = 417) IMMATURE GRANULOCYTES-RELATIVE 0 % 0-1 PERCENT (BEAKER) (test code = 2801) BLOOD GAS, [id number] 12:04:00 Test Item Value Reference Range Interpretation Comments PH ARTERIAL (BEAKER) (test code = 7.49 7.35-7.45 H 383) PCO2 ARTERIAL (BEAKER) (test code 57 mmHg 35-45 H = 384) PO2 ARTERIAL (BEAKER) (test code 44 mmHg 80-90 L = 385) O2 SATURATION ARTERIAL (BEAKER) 83.1 % 96.0-97.0 L (test code = 386) HCO3 ARTERIAL (BEAKER) (test code 42 mmol/L 21-29 HH = 388) BASE EXCESS ARTERIAL (BEAKER) 16.0 mmol/L -2.0-3.0 H (test code = 387) PATIENT TEMPERATURE (BEAKER) 36.7 C (test code = 1818) FIO2 (BEAKER) (test code = 1819) 21.0 % BASIC METABOLIC [id number] 07:47:00 Test Item Value Reference Range Interpretation Comments SODIUM (BEAKER) 140 meq/L 136-145 (test code = 381) POTASSIUM (BEAKER) 3.4 meq/L 3.5-5.1 L (test code = 379) CHLORIDE (BEAKER) 92 meq/L 98-107 L (test code = 382) CO2 (BEAKER) (test 41 meq/L 22-29 HH code = 355) BLOOD UREA NITROGEN 18 mg/dL 7-21 (BEAKER) (test code = 354) CREATININE (BEAKER) 0.82 mg/dL 0.57-1.25 (test code = 358) GLUCOSE RANDOM 103 mg/dL 70-105 (BEAKER) (test code = 652) CALCIUM (BEAKER) 8.8 mg/dL 8.4-10.2 (test code = 697) EGFR (BEAKER) (test 92 mL/min/1.73 ESTIMA JERE GFR IS code = 1092) sq m NOT ACCURATE CREATININE CLEARANCE IN PREDICTING GLOMERULAR FILTRATION RATE . ESTIMATED GFR I S NOT APPLICABLE FOR DIALYSIS PATIEN TS. [id number] 07:34:00 Test Item Value Reference Range Interpretation Comments PARTIAL THROMBOPLASTIN TIME 78.3 seconds 22.5-36.0 H (BEAKER) (test code = 760) [id number] 07:09:00 Test Item Value Reference Range Interpretation Comments PHOSPHORUS (BEAKER) (test code = 3.0 mg/dL 2.3-4.7 604) [id number] 07:09:00 Test Item Value Reference Range Interpretation Comments MAGNESIUM (BEAKER) (test code = 1.9 mg/dL 1.6-2.6 627) CBC W/PLT COUNT & AUTO [id number] 06:45:00 Test Item Value Reference Range Interpretation Comments WHITE BLOOD CELL COUNT (BEAKER) 9.5 K/ L 3.5-10.5 (test code = 775) RED BLOOD CELL COUNT (BEAKER) 4.11 M/ L 4.63-6.08 L (test code = 761) HEMOGLOBIN (BEAKER) (test code = 14.0 GM/DL 13.7-17.5 410) HEMATOCRIT (BEAKER) (test code = 45.2 % 40.1-51.0 411) MEAN CORPUSCULAR VOLUME (BEAKER) 110.0 fL 79.0-92.2 H (test code = 753) MEAN CORPUSCULAR HEMOGLOBIN 34.1 pg 25.7-32.2 H (BEAKER) (test code = 751) MEAN CORPUSCULAR HEMOGLOBIN CONC 31.0 GM/DL 32.3-36.5 L (BEAKER) (test code = 752) RED CELL DISTRIBUTION WIDTH 14.1 % 11.6-14.4 (BEAKER) (test code = 412) PLATELET COUNT (BEAKER) (test 199 K/CU MM 150-450 code = 756) MEAN PLATELET VOLUME (BEAKER) 10.8 fL 9.4-12.4 (test code = 754) NUCLEATED RED BLOOD CELLS 0 /100 WBC 0-0 (BEAKER) (test code = 413) NEUTROPHILS RELATIVE PERCENT 70 % (BEAKER) (test code = 429) LYMPHOCYTES RELATIVE PERCENT 14 % (BEAKER) (test code = 430) MONOCYTES RELATIVE PERCENT 13 % (BEAKER) (test code = 431) EOSINOPHILS RELATIVE PERCENT 2 % (BEAKER) (test code = 432) BASOPHILS RELATIVE PERCENT 1 % (BEAKER) (test code = 437) NEUTROPHILS ABSOLUTE COUNT 6.61 K/ L 1.78-5.38 H (BEAKER) (test code = 670) LYMPHOCYTES ABSOLUTE COUNT 1.31 K/ L 1.32-3.57 L (BEAKER) (test code = 414) MONOCYTES ABSOLUTE COUNT (BEAKER) 1.26 K/ L 0.30-0.82 H (test code = 415) EOSINOPHILS ABSOLUTE COUNT 0.22 K/ L 0.04-0.54 (BEAKER) (test code = 416) BASOPHILS ABSOLUTE COUNT (BEAKER) 0.05 K/ L 0.01-0.08 (test code = 417) IMMATURE GRANULOCYTES-RELATIVE 0 % 0-1 PERCENT (BEAKER) (test code = 2801) [id number] 01:15:00 Test Item Value Reference Range Interpretation Comments PARTIAL THROMBOPLASTIN TIME 74.9 seconds 22.5-36.0 H (BEAKER) (test code = 760) Prior to initiating [id number] 18:46:00 Test Item Value Reference Range Interpretation Comments PARTIAL THROMBOPLASTIN TIME 60.3 seconds 22.5-36.0 H (BEAKER) (test code = 760) [id number] 11:40:00 Test Item Value Reference Range Interpretation Comments PARTIAL THROMBOPLASTIN TIME 53.6 seconds 22.5-36.0 H (BEAKER) (test code = 760) RAD, CHEST, 1 VIEW, NON [id number] 11:22:00Reason for exam:- >hYPOXEMIAShould this be performed at the bedside?->YesFINAL REPORT Chest, 1 view. History: Hypoxemia. Comparison: 07/21/2019. Impression: Lung volumes remain low. There are bibasilar opacities which may reflect atelectasis, unchanged from the prior examination. There is no evidence for large focal consolidation, pneumothorax, or significant pleural effusion. The cardiomediastinal silhouette is stable in appearance. No acute osseous a bnormality identified. Signed: Cayetano Dickersoneport Verified Date/Time: 07/22/2019 11:22:36 Reading Location: [address] Ortho Consult Reading Room MAGNESIUM 2019-07-22 05:21:00 Test Item Value Reference Range Interpretation Comments MAGNESIUM (BEAKER) 2.0 mg/dL 1.6-2.6 Specimen slightly (test code = 627) hemolyzed [id number] 05:21:00 Test Item Value Reference Range Interpretation Comments PHOSPHORUS (BEAKER) 3.2 mg/dL 2.3-4.7 Specimen slightly (test code = 604) hemolyzed BASIC METABOLIC [id number] 05:21:00 Test Item Value Reference Range Interpretation Comments SODIUM (BEAKER) 140 meq/L 136-145 (test code = 381) POTASSIUM (BEAKER) 3.9 meq/L 3.5-5.1 Specimen slightly (test code = 379) hemolyzed CHLORIDE (BEAKER) 95 meq/L 98-107 L (test code = 382) CO2 (BEAKER) (test 38 meq/L 22-29 H code = 355) BLOOD UREA NITROGEN 23 mg/dL 7-21 H (BEAKER) (test code = 354) CREATININE (BEAKER) 0.85 mg/dL 0.57-1.25 Specimen slightly (test code = 358) hemolyzed GLUCOSE RANDOM 95 mg/dL 70-105 (BEAKER) (test code = 652) CALCIUM (BEAKER) 8.5 mg/dL 8.4-10.2 (test code = 697) EGFR (BEAKER) (test 88 mL/min/1.73 ESTIMA JERE GFR IS code = 1092) sq m NOT ACCURATE CREATININE CLEARANCE IN PREDICTING GLOMERULAR FILTRATION RATE . ESTIMATED GFR I S NOT APPLICABLE FOR DIALYSIS PATIEN TS. CBC W/PLT COUNT & AUTO [id number] 04:59:00 Test Item Value Reference Range Interpretation Comments WHITE BLOOD CELL COUNT (BEAKER) 8.6 K/ L 3.5-10.5 (test code = 775) RED BLOOD CELL COUNT (BEAKER) 3.69 M/ L 4.63-6.08 L (test code = 761) HEMOGLOBIN (BEAKER) (test code = 12.5 GM/DL 13.7-17.5 L 410) HEMATOCRIT (BEAKER) (test code = 41.5 % 40.1-51.0 411) MEAN CORPUSCULAR VOLUME (BEAKER) 112.5 fL 79.0-92.2 H (test code = 753) MEAN CORPUSCULAR HEMOGLOBIN 33.9 pg 25.7-32.2 H (BEAKER) (test code = 751) MEAN CORPUSCULAR HEMOGLOBIN CONC 30.1 GM/DL 32.3-36.5 L (BEAKER) (test code = 752) RED CELL DISTRIBUTION WIDTH 14.2 % 11.6-14.4 (BEAKER) (test code = 412) PLATELET COUNT (BEAKER) (test 185 K/CU MM 150-450 code = 756) MEAN PLATELET VOLUME (BEAKER) 11.0 fL 9.4-12.4 (test code = 754) NUCLEATED RED BLOOD CELLS 0 /100 WBC 0-0 (BEAKER) (test code = 413) NEUTROPHILS RELATIVE PERCENT 67 % (BEAKER) (test code = 429) LYMPHOCYTES RELATIVE PERCENT 15 % (BEAKER) (test code = 430) MONOCYTES RELATIVE PERCENT 14 % (BEAKER) (test code = 431) EOSINOPHILS RELATIVE PERCENT 3 % (BEAKER) (test code = 432) BASOPHILS RELATIVE PERCENT 1 % (BEAKER) (test code = 437) NEUTROPHILS ABSOLUTE COUNT 5.75 K/ L 1.78-5.38 H (BEAKER) (test code = 670) LYMPHOCYTES ABSOLUTE COUNT 1.28 K/ L 1.32-3.57 L (BEAKER) (test code = 414) MONOCYTES ABSOLUTE COUNT (BEAKER) 1.21 K/ L 0.30-0.82 H (test code = 415) EOSINOPHILS ABSOLUTE COUNT 0.26 K/ L 0.04-0.54 (BEAKER) (test code = 416) BASOPHILS ABSOLUTE COUNT (BEAKER) 0.05 K/ L 0.01-0.08 (test code = 417) IMMATURE GRANULOCYTES-RELATIVE 0 % 0-1 PERCENT (BEAKER) (test code = 2801) [id number] 02:01:00 Test Item Value Reference Range Interpretation Comments PARTIAL THROMBOPLASTIN TIME 42.4 seconds 22.5-36.0 H (BEAKER) (test code = 760) [id number] 19:10:00 Test Item Value Reference Range Interpretation Comments PARTIAL THROMBOPLASTIN TIME 37.1 seconds 22.5-36.0 H (BEAKER) (test code = 760) [id number] 12:05:00 Test Item Value Reference Range Interpretation Comments PROCALCITONIN (BEAKER) (test code = < ng/mL <0.05 3036) SEPSIS RISK (ng/mL)Low: 0.05-0.50Intermediate: 0.51-2.00High: >=2.01TROPONIN [id number] 11:59:00 Test Item Value Reference Range Interpretation Comments TROPONIN I (BEAKER) (test code = 0.29 ng/mL 0.00-0.03 HH 397) Troponin I (TnI) levels must be interpreted in the context of the presenting symptoms and the clinical findings. Elevated TnI levels indicate myocardial damage, but are not specific for ischemic heart disease. Elevated TnI levels are seen in patients with other cardiac conditions (including myocarditis and congestive heart failure), and slight TnI elevations occur in patients with other conditions, including sepsis, renal failure, acidosis, acute neurological disease, and persistent tachyarrhythmia.PROTHROMBIN [id number] 11:35:00 Test Item Value Reference Range Interpretation Comments PROTIME (BEAKER) (test code = 15.8 seconds 11.9-14.2 H 759) INR (BEAKER) (test code = 370) 1.3 <=5.9 Effective 01/04/2019: PT Reference Range ChangeNew: 11.9-14.2 Previous: 11.7- 14.7RECOMMENDED COUMADIN/WARFARIN INR THERAPY RANGESSTANDARD DOSE: 2.0-3.0 Includes: PROPHYLAXIS for venous thrombosis, systemic embolization; TREATMENT for venous thrombosis and/or pulmonary embolus.HIGH RISK: Target INR is 2.5-3.5 for patients wiht mechanical heart valves.6 hours after starting heparin infusion and as indicated per sliding [id number] 11:35:00 Test Item Value Reference Range Interpretation Comments PARTIAL THROMBOPLASTIN TIME 27.5 seconds 22.5-36.0 (BEAKER) (test code = 760) 6 hours after starting heparin infusion and as indicated per sliding scaleRAD, CHEST, 1 VIEW, NON [id number] 10:54:00Post-intubationReason for exam:- >hypercapnic respiratory failureShould this be performed at the [facility]?->YesFINAL REPORT RAD, CHEST, 1 VIEW, NON DEPT INDICATION: hypercapnic respiratory failure COMPARISON: November 22, 2018 FINDINGS: Portable frontal view of the chest. IMPRESSION: Support Lines: External leads Lungs and pleura: Lungs are hypoinflated. Minimal bibasilar subsegmental atelectasis. No pneumothorax.Heart and mediastinum: Stable contours. Stable surgical changes.Additional findings: None. Signed: Jacquelyn Jacobson MDReport Verified Date/Time: 07/21/2019 10:54:20 [facility] Radiology Reading Room CBC W/PLT COUNT & AUTO [id number] 07:48:00 Test Item Value Reference Range Interpretation Comments WHITE BLOOD CELL COUNT (BEAKER) 10.2 K/ L 3.5-10.5 (test code = 775) RED BLOOD CELL COUNT (BEAKER) 3.70 M/ L 4.63-6.08 L (test code = 761) HEMOGLOBIN (BEAKER) (test code = 12.9 GM/DL 13.7-17.5 L 410) HEMATOCRIT (BEAKER) (test code = 41.7 % 40.1-51.0 411) MEAN CORPUSCULAR VOLUME (BEAKER) 112.7 fL 79.0-92.2 H (test code = 753) MEAN CORPUSCULAR HEMOGLOBIN 34.9 pg 25.7-32.2 H (BEAKER) (test code = 751) MEAN CORPUSCULAR HEMOGLOBIN CONC 30.9 GM/DL 32.3-36.5 L (BEAKER) (test code = 752) RED CELL DISTRIBUTION WIDTH 14.6 % 11.6-14.4 H (BEAKER) (test code = 412) PLATELET COUNT (BEAKER) (test 206 K/CU MM 150-450 code = 756) MEAN PLATELET VOLUME (BEAKER) 11.3 fL 9.4-12.4 (test code = 754) NUCLEATED RED BLOOD CELLS 0 /100 WBC 0-0 (BEAKER) (test code = 413) NEUTROPHILS RELATIVE PERCENT 76 % (BEAKER) (test code = 429) LYMPHOCYTES RELATIVE PERCENT 11 % (BEAKER) (test code = 430) MONOCYTES RELATIVE PERCENT 12 % (BEAKER) (test code = 431) EOSINOPHILS RELATIVE PERCENT 1 % (BEAKER) (test code = 432) BASOPHILS RELATIVE PERCENT 0 % (BEAKER) (test code = 437) NEUTROPHILS ABSOLUTE COUNT 7.76 K/ L 1.78-5.38 H (BEAKER) (test code = 670) LYMPHOCYTES ABSOLUTE COUNT 1.10 K/ L 1.32-3.57 L (BEAKER) (test code = 414) MONOCYTES ABSOLUTE COUNT (BEAKER) 1.21 K/ L 0.30-0.82 H (test code = 415) EOSINOPHILS ABSOLUTE COUNT 0.05 K/ L 0.04-0.54 (BEAKER) (test code = 416) BASOPHILS ABSOLUTE COUNT (BEAKER) 0.04 K/ L 0.01-0.08 (test code = 417) IMMATURE GRANULOCYTES-RELATIVE 1 % 0-1 PERCENT (BEAKER) (test code = 2801) TROPONIN [id number] 07:17:00 Test Item Value Reference Range Interpretation Comments TROPONIN I (BEAKER) (test code = 0.31 ng/mL 0.00-0.03 397) Troponin I (TnI) levels must be interpreted in the context of the presenting symptoms and the clinical findings. Elevated TnI levels indicate myocardial damage, but are not specific for ischemic heart disease. Elevated TnI levels are seen in patients with other cardiac conditions (including myocarditis and congestive heart failure), and slight TnI elevations occur in patients with other conditions, including sepsis, renal failure, acidosis, acute neurological disease, and persistent tachyarrhythmia.B-TYPE NATRIURETIC FACTOR (BNP) 2019-07-21 07:10:00 Test Item Value Reference Range Interpretation Comments B-TYPE NATRIURETIC PEPTIDE (BEAKER) 351 pg/mL 0-100 H (test code = 700) [id number] 07:04:00 Test Item Value Reference Range Interpretation Comments MAGNESIUM (BEAKER) 2.2 mg/dL 1.6-2.6 Specimen slightly (test code = 627) hemolyzed BASIC METABOLIC [id number] 07:04:00 Test Item Value Reference Range Interpretation Comments SODIUM (BEAKER) 141 meq/L 136-145 (test code = 381) POTASSIUM (BEAKER) 4.9 meq/L 3.5-5.1 Specimen slightly (test code = 379) hemolyzed CHLORIDE (BEAKER) 102 meq/L 98-107 (test code = 382) CO2 (BEAKER) (test 34 meq/L 22-29 H code = 355) BLOOD UREA NITROGEN 27 mg/dL 7-21 H (BEAKER) (test code = 354) CREATININE (BEAKER) 1.02 mg/dL 0.57-1.25 Specimen slightly (test code = 358) hemolyzed GLUCOSE RANDOM 105 mg/dL 70-105 (BEAKER) (test code = 652) CALCIUM (BEAKER) 9.0 mg/dL 8.4-10.2 (test code = 697) EGFR (BEAKER) (test 71 mL/min/1.73 ESTIMA JERE GFR IS code = 1092) sq m NOT ACCURATE CREATININE CLEARANCE IN PREDICTING GLOMERULAR FILTRATION RATE . ESTIMATED GFR I S NOT APPLICABLE FOR DIALYSIS PATIEN TS. RAD, CHEST, 2 [id number] 12:12:00Reason for Exam:->I25.10Reason for Exam:->I45.10Reason for Exam:->I71.4Reason for Exam:->J13Sfvobb for Exam:->E78.49Reason for Exam:->Z12.5Reason for Exam:->M79.89Reason for Exam:->M79.602FINAL REPORT Chest, PA and lateral. History: I25.10. Comparison: None available. Discussion: The cardiomediastinal silhouette and pulmonary vasculature are within normal limits. The lungs are clear without evidence of consolidation or effusion. There are no acute osseous abnormalities. Right hemidiaphragm elevation similar to previous. IMPRESSION: No acute cardiopulmonary abnormality. Signed: Pamela Shultzeport Verified Date/Time: 11/22/2018 12:12:04 Reading Location: [facility] CT, CTA ABDOMEN 2018-07-21 11:07:00Addendum BeginsREPORT STATUS:A ADDENDUM: Study reviewed by radiology. Agree with the nonvascular findings as described below. Signed: Pablo Stratton MDReport Verified Date/Time: 07/21/2018 11:07:03 Reading Location: [place] [address] Angio Body Reading RoomAddendum EndsFINAL REPORT CT angiography of abdominal aorta and pelvic arteries, 20 July 2018 INDICATION: This is a 72 year old male with history of abdominal aortic aneurysm post endovascular exclusion. Patient presents for followup evaluation. TECHNIQUE: Spiral acquisition was performed before, during, and after intravenous contrast administration using a GE multidetector scanner. Multi-planar 3-D volume-rendering reconstruction was performed using an independent workstation interactively by the interpreting physician as well as the 3-D specialist for optimal visualisation of the abdominal aorta, pelvic arteries, and its proximal branches. Please refer to the contrast sheet scanned in the EPIC system for the amount and route of contrast given. This exam was performed according to our departmental dose-optimisation programme, which includes automated exposure control, adjustment of the mA and/or kV according to patient size and/or use of iterative reconstruction technique. Dose modulation, iterativereconstruction, and/or weight based adjustment of the mA/kV was utilized to reduce the radiation dose to as low as reasonably achievable. FINDINGS: VASCULAR: Coronary artery calcification is identifiedin the visualised RCA territory. Scattered calcification is seen in the distal descending thoracic aorta. Similar to prior examination, once again of note, an endostent is present, commencing immediately distal to the takeoff of the right renal artery, with the left and the right iliac limbs terminatein the left and the right common iliac arteries. The stent is well-positioned. No endoleak is identified in the arterial and delay images. The common iliac, external iliac, common femoral, and the visualized superficial femoral arteries, bilaterally, are widely patent. Some eccentric calcification is seen. No significant obstructive lesion is seen in the celiac axis and SMA with some mild atherosclerosis identified eccentrically. The ABDELRAHMAN fills retrogradely by surrounding collaterals. Single left andright renal arteries are seen with eccentric nonobstructive calcification identified with no stenosis seen. Single left and right renal veins are seen draining normally into the IVC. Dimensions of the abdominal aorta are: 2.6 cm at the mesenteric segment2.7 cm at the renal segment4.4 x 3.9 cm at the mid infrarenal portion3.9 x 3.3 cm at the distal infrarenal aorta2.2 cm at the aortic bifurcation. Quantitative aneurysm volume measured from just below the is 105 cc measures immediately below the left renal artery down to the aortic bifurcation, when compared to 109 cc in prior examination, remeasured. NON-VASCULAR: Lung bases are unremarkable. Some atelectatic changes are seen. In the abdomen, the liver and spleen appears unremarkable. The liver edge is smooth. No abnormal enhancing structure is identified. The gallbladder, the pancreas appears unremarkable. The right adrenal gland is unremarkable. A small nodule is identified in the medial limb of the left adrenal gland, with precontrast Hounsfield unit of 10 suggesting a tiny adenoma; this finding remains unchanged when compared to prior examination. No acute renal pathology is seen and no hydronephrosis or perirenal fluid collection is identified. This again of note, simple appearing cyst is identified in the medial aspect of the right kidney, image 100, with no enhancement after contrast administration. It measures approximately 3.5 x 5.2cm. A tiny hyperdense cyst is identified more anteriorly, also at image 100, measures approximately 1.4 cm with no enhancement after contrast administration, suggesting proteinaceous/hemorrhagic in nature. Bowel is not well assessed by CT angiography as enteric contrast is not given. No obvious bowel dilation is identified. Diverticular disease is seen in the descending and sigmoid colon with no evidence of acute diverticulitis. Small bilateral fat-containing inguinal hernia seen bilaterally. No free air or free fluid seen in the abdomen and pelvis. The prostate is not identified and in addition, surgical clips are seen indicating prior prostatectomy, likely with associated lymph node dissection. The bladder appears grossly unremarkable and is not distended. No significant retroperitoneal adenopathy is identified. No acute bony pathology is identified. Degenerative changes is noted. No obvious ly tic or blastic lesion is present. CONCLUSIONS: 1. Patient is post abdominal aortic aneurysm exclusion via endovascular stent graft. The stent graft is well positioned and widely patent with no evidenceof endoleak. Dimensions are as described above. Maximum aneurysm diameter is 4.5 x 3.8 cm. Quantitative aneurysm volume measured from just below the is 105 cc measures immediately below the left renal artery down to the aortic bifurcation, when compared to 109 cc in prior examination, remeasured, confirming the interval reduction of the aortic diameter. 2. Widely patent mesenteric and renal arteries.The ABDELRAHMAN fills retrogradely by surrounding collaterals. 3. Other findings as described above 4. An addendum will be dictated regarding the non-vascular findings by the User Experience Analyst Radiologist. Signed: Carl Chaoeport Verified Date/Time: 07/20/2018 16:29:41 Reading Location: [place] [address] Cardiology MRI [id number] 13:30:00 Test Item Value Reference Range Interpretation Comments POC-CREATININE 0.9 mg/dL 0.6-1.[address] [facility] ([facility]) (test [facility] ON [place] code = 1859) [address] POC-EGFR ([facility]) 82 mL/min/1.73M2 (test code = 1860) CT, EXTREMITY, LOWER, WITH CONTRAST, [id number] 21:22:00FINAL REPORT CLINICAL HISTORY: Calf pain and swelling COMPARISON: None. FINDINGS : Multiple axial images of the left lower extremity were performed from the iliac crest to the foot after the uncomplicated administration of IV contrast. Coronal and sagittal reformats were created. This exam was performed according to our departmental dose-optimization program, which includes automated exposure control, adjustment of the mA and/or kV according to patient size and/or use of the iterative reconstruction technique. There is a heterogeneous, slightly lobulated fluid collection in the muscular tissues of the gastrocnemius. The maximum cross-sectional dimension is measures 5.2 x 3.6 x 24.0 cm. The appearance is suggestive of a hematoma. Superinfection should be excluded clinically. There is no evidence of arterial compression. No extravasation of IV contrast is noted. There is no soft tissue gas. No acute fracture, malalignment or destructive bony lesion is present. There are advanced bilateral degenerative changes in the knee, including several loose bodies in the anterior knee joint. A trace knee joint effusion is present which probably relates to degenerative changes. Atherosclerotic calcifications are present in the lower extremity arterial system. There is no focal occlusion. Subcutaneous edema is present about the left lower leg. IMPRESSION: 5.2 x 3.6 x 24.0 cm heterogeneous density fluid collection within the gastrocnemius musculature, most consistent in appearance with a soft tissue hematoma. Superinfection should be excluded clinically. Degenerative changes in the knee with a trace associated knee joint effusion. Signed: Emilio Self MDReport Verified Date/Time: 06/14/2018 21:22:09 Reading Location: [address] Reading Room [facility] [id number] 15:18:00 Test Item Value Reference Range Interpretation Comments SODIUM (BEAKER) 140 meq/L 136-145 (test code = 381) POTASSIUM (BEAKER) 4.1 meq/L 3.5-5.1 (test code = 379) CHLORIDE (BEAKER) 102 meq/L 98-107 (test code = 382) CO2 (BEAKER) (test 31 meq/L 22-29 H code = 355) BLOOD UREA NITROGEN 17 mg/dL 7-21 (BEAKER) (test code = 354) CREATININE (BEAKER) 0.92 mg/dL 0.57-1.25 (test code = 358) GLUCOSE RANDOM 108 mg/dL 70-105 H (BEAKER) (test code = 652) CALCIUM (BEAKER) 9.7 mg/dL 8.4-10.2 (test code = 697) EGFR (BEAKER) (test 80 mL/min/1.73 ESTIMA JERE GFR IS code = 1092) sq m NOT ACCURATE CREATININE CLEARANCE IN PREDICTING GLOMERULAR FILTRATION RATE . ESTIMATED GFR I S NOT APPLICABLE FOR DIALYSIS PATIEN TS. [id number] 15:08:00 Test Item Value Reference Range Interpretation Comments PARTIAL THROMBOPLASTIN TIME 25.4 seconds 22.5-36.0 (BEAKER) (test code = 760) PROTHROMBIN [id number] 15:07:00 Test Item Value Reference Range Interpretation Comments PROTIME (BEAKER) (test code = 15.1 seconds 11.7-14.7 H 759) INR (BEAKER) (test code = 370) 1.2 <=5.9 RECOMMENDED COUMADIN/WARFARIN INR THERAPY RANGESSTANDARD DOSE: 2.0 - 3.0 Includes: PROPHYLAXIS for venous thrombosis, systemic embolization; TREATMENT for venous thrombosis and/or pulmonary embolus.HIGH RISK: Target INR is 2.5-3.5 for patients with mechanical heart valves.CBC W/PLT COUNT & AUTO [id number] 15:05:00 Test Item Value Reference Range Interpretation Comments WHITE BLOOD CELL COUNT (BEAKER) 12.1 K/ L 3.5-10.5 H (test code = 775) RED BLOOD CELL COUNT (BEAKER) 3.57 M/ L 4.63-6.08 L (test code = 761) HEMOGLOBIN (BEAKER) (test code = 12.6 GM/DL 13.7-17.5 L 410) HEMATOCRIT (BEAKER) (test code = 38.6 % 40.1-51.0 L 411) MEAN CORPUSCULAR VOLUME (BEAKER) 108.1 fL 79.0-92.2 H (test code = 753) MEAN CORPUSCULAR HEMOGLOBIN 35.3 pg 25.7-32.2 H (BEAKER) (test code = 751) MEAN CORPUSCULAR HEMOGLOBIN CONC 32.6 GM/DL 32.3-36.5 (BEAKER) (test code = 752) RED CELL DISTRIBUTION WIDTH 13.8 % 11.6-14.4 (BEAKER) (test code = 412) PLATELET COUNT (BEAKER) (test 191 K/CU MM 150-450 code = 756) MEAN PLATELET VOLUME (BEAKER) 10.8 fL 9.4-12.4 (test code = 754) NUCLEATED RED BLOOD CELLS 0 /100 WBC 0-0 (BEAKER) (test code = 413) NEUTROPHILS RELATIVE PERCENT 81 % (BEAKER) (test code = 429) LYMPHOCYTES RELATIVE PERCENT 9 % (BEAKER) (test code = 430) MONOCYTES RELATIVE PERCENT 10 % (BEAKER) (test code = 431) EOSINOPHILS RELATIVE PERCENT 0 % (BEAKER) (test code = 432) BASOPHILS RELATIVE PERCENT 0 % (BEAKER) (test code = 437) NEUTROPHILS ABSOLUTE COUNT 9.77 K/ L 1.78-5.38 H (BEAKER) (test code = 670) LYMPHOCYTES ABSOLUTE COUNT 1.07 K/ L 1.32-3.57 L (BEAKER) (test code = 414) MONOCYTES ABSOLUTE COUNT (BEAKER) 1.20 K/ L 0.30-0.82 H (test code = 415) EOSINOPHILS ABSOLUTE COUNT 0.02 K/ L 0.04-0.54 L (BEAKER) (test code = 416) BASOPHILS ABSOLUTE COUNT (BEAKER) 0.04 K/ L 0.01-0.08 (test code = 417) IMMATURE GRANULOCYTES-RELATIVE 0 % 0-1 PERCENT (BEAKER) (test code = 2801) RAD, CHEST, 2 [id number] 08:19:00Reason for Exam:->GI Bleed, Elevated pulse, CAD, RBBB, HTN, DyslipidemiaFINAL REPORT Chest, PA and lateral. History: GI bleed. Comparison: 11/25/2016. Discussion: Heart size upper limits of normal. Thoracic aortic ectasia. The lungs are clear without rylee dence of consolidation or effusion. There are no acute osseous abnormalities. There is right hemidiaphragm elevation. Otherwise, the soft tissues are unremarkable. IMPRESSION: No acute cardiopulmonary abnormality. No appreciable interval change. Signed: Pamela Shultz MDRort Verified Date/Time: 04/15/2018 08:19:48 Reading Location: [address] Radiology Reading Room LIPID PANEL 2018-04-15 07:34:00 Test Item Value Reference Range Interpretation Comments TRIGLYCERIDES (BEAKER) (test code = 72 mg/dL 540) CHOLESTEROL (BEAKER) (test code = 127 mg/dL 631) HDL CHOLESTEROL (BEAKER) (test code 56 mg/dL = 976) LDL CHOLESTEROL CALCULATED (BEAKER) 57 mg/dL (test code = 633) Triglyceride Reference Range: Low Risk <150 Borderline 150-199 High Risk 200- 499 Very High Risk >=500Cholesterol Reference Range: Low Risk <200 Borderline 200-239 High Risk >240HDL Cholesterol Reference Range: Low Risk >=60 High Risk <40LDL Cholesterol Reference Range: Optimal <100 Near Optimal 100-129 Borderline 130-159 High 160-189 Very High >=190COMPREHENSIVE METABOLIC [id number] 07:34:00 Test Item Value Reference Range Interpretation Comments TOTAL PROTEIN 7.7 gm/dL 6.0-8.3 (BEAKER) (test code = 770) ALBUMIN (BEAKER) 4.4 g/dL 3.5-5.0 (test code = 1145) ALKALINE PHOSPHATASE 39 U/L 40-150 L (BEAKER) (test code = 346) BILIRUBIN TOTAL 0.9 mg/dL 0.2-1.2 (BEAKER) (test code = 377) SODIUM (BEAKER) (test 135 meq/L 136-145 L code = 381) POTASSIUM (BEAKER) 4.4 meq/L 3.5-5.1 (test code = 379) CHLORIDE (BEAKER) 100 meq/L 98-107 (test code = 382) CO2 (BEAKER) (test 31 meq/L 22-29 H code = 355) BLOOD UREA NITROGEN 14 mg/dL 7-21 (BEAKER) (test code = 354) CREATININE (BEAKER) 0.89 mg/dL 0.57-1.25 (test code = 358) GLUCOSE RANDOM 106 mg/dL 70-105 H (BEAKER) (test code = 652) CALCIUM (BEAKER) 9.5 mg/dL 8.4-10.2 (test code = 697) AST (SGOT) (BEAKER) 19 U/L 5-34 (test code = 353) ALT (SGPT) (BEAKER) 16 U/L 6-55 (test code = 347) EGFR (BEAKER) (test 84 mL/min/1.73 ESTIMA JERE GFR IS code = 1092) sq m NOT ACCURATE CREATININE CLEARANCE IN PREDICTING GLOMERULAR FILTRATION RATE . ESTIMATED GFR I S NOT APPLICABLE FOR DIALYSIS PATIEN TS. CBC W/PLT COUNT & AUTO [id number] 07:17:00 Test Item Value Reference Range Interpretation Comments WHITE BLOOD CELL COUNT (BEAKER) 7.5 K/ L 3.5-10.5 (test code = 775) RED BLOOD CELL COUNT (BEAKER) 4.12 M/ L 4.63-6.08 L (test code = 761) HEMOGLOBIN (BEAKER) (test code = 13.8 GM/DL 13.7-17.5 410) HEMATOCRIT (BEAKER) (test code = 43.1 % 40.1-51.0 411) MEAN CORPUSCULAR VOLUME (BEAKER) 104.6 fL 79.0-92.2 H (test code = 753) MEAN CORPUSCULAR HEMOGLOBIN 33.5 pg 25.7-32.2 H (BEAKER) (test code = 751) MEAN CORPUSCULAR HEMOGLOBIN CONC 32.0 GM/DL 32.3-36.5 L (BEAKER) (test code = 752) RED CELL DISTRIBUTION WIDTH 13.7 % 11.6-14.4 (BEAKER) (test code = 412) PLATELET COUNT (BEAKER) (test 179 K/CU MM 150-450 code = 756) MEAN PLATELET VOLUME (BEAKER) 10.4 fL 9.4-12.4 (test code = 754) NUCLEATED RED BLOOD CELLS 0 /100 WBC 0-0 (BEAKER) (test code = 413) NEUTROPHILS RELATIVE PERCENT 73 % (BEAKER) (test code = 429) LYMPHOCYTES RELATIVE PERCENT 16 % (BEAKER) (test code = 430) MONOCYTES RELATIVE PERCENT 8 % (BEAKER) (test code = 431) EOSINOPHILS RELATIVE PERCENT 3 % (BEAKER) (test code = 432) BASOPHILS RELATIVE PERCENT 1 % (BEAKER) (test code = 437) NEUTROPHILS ABSOLUTE COUNT 5.42 K/ L 1.78-5.38 H (BEAKER) (test code = 670) LYMPHOCYTES ABSOLUTE COUNT 1.17 K/ L 1.32-3.57 L (BEAKER) (test code = 414) MONOCYTES ABSOLUTE COUNT (BEAKER) 0.60 K/ L 0.30-0.82 (test code = 415) EOSINOPHILS ABSOLUTE COUNT 0.19 K/ L 0.04-0.54 (BEAKER) (test code = 416) BASOPHILS ABSOLUTE COUNT (BEAKER) 0.07 K/ L 0.01-0.08 (test code = 417) IMMATURE GRANULOCYTES-RELATIVE 0 % 0-1 PERCENT (ADAM) (test code = 2801) CT, CTA [id number] 17:36:00Addendum BeginsREPORT STATUS:A Addendum: June 21, 2017 at 1735 hours I havereviewed the CT images for this study and I concur with the nonvascular imaging findings as dictated. Signed: Junior Herrera MDReport Verified Date/Time: 06/21/2017 17:36:13 Reading Location: [place] [address] Angio Body Reading RoomAddendum EndsFINAL REPORT CT angiography of abdominal aorta and pelvic arteries, 21 June 2017 COMPARISON : 2015 INDICATION: This is a 72 year old malewith history of abdominal aortic aneurysm post endovascular exclusion. Patient presents for followupevaluation. TECHNIQUE: Spiral acquisition was performed before, during, and after intravenous contrast administration using a [employer] multidetector scanner. Multi-planar 3-D volume-rendering reconstruction was performed using an independent workstation interactively by the interpreting physician as well asthe 3-D specialist for optimal visualisation of the abdominal aorta, pelvic arteries, and its proximal branches. Please refer to the contrast sheet scanned in the EPIC system for the amount and route of contrast given. This exam was performed according to our departmental dose-optimisation programme, which includes automated exposure control, adjustment of the mA and/or kV according to patient size and/or use of iterative reconstruction technique. Dose modulation, iterative reconstruction, and/or weight based adjustment of the mA/kV was utilized to reduce the radiation dose to as low as reasonably achievable. FINDINGS: VASCULAR: Coronary artery calcification is identified in the visualised RCA territory. The visualised. Distal descending thoracic aorta has eccentric calcific atherosclerosis identified. Similar to prior examination, once again of note, an endostent is present, commencing initially distal to the takeoff of the right renal artery, with the left and the right iliac limbs terminate in the left and the right common iliac arteries. The stent is well-positioned. No endoleak is identified in the arterial and delay images. The common iliac, external iliac, common femoral, and the visualized superficial femoral arteries, bilaterally, are widely patent. The coeliac axis has mild stenosis seen proximally. The SMA has eccentric nonobstructive calcification identified. The ABDELRAHMAN fills retrogradely by surrounding collaterals. Single left and right renal arteries are seen with eccentric nonobstructive calcification identified with no stenosis seen. Single left and right renal veins are seendraining normally into the IVC. Dimensions of the aorta are: 2.7 cm at the mesenteric segment2.6 cm at the renal segment4.5 x 3.8 cm at the mid infrarenal portion3.9 x 3.4 cm at the distal infrarenal aorta2.1 cm at the aortic bifurcation. Quantitative aneurysm volume measured from just below the left renal artery to the aortic bifurcation is 109 cc. NON-VASCULAR:- In the lung windows, no obvious endobronchial lesion is seen. Once again of note, the right hemidiaphragm is somewhat elevated of uncertain significance, stable when compared to prior examination. In the abdomen, the liver and spleen appears unremarkable. The liver edge is smooth. No abnormal enhancing structure is identified. The gallbladder, the pancreas appears unremarkable. The right adrenal gland is unremarkable. A small nodule is identified in the medial limb of the left adrenal gland, with precontrast Hounsfield unit of 10 suggesting a tiny adenoma. No acute renal pathology is seen and no hydronephrosis or perirenal fluid collection is identified. Stable appearing renal cyst is identified in the medial aspect of the right kidney, at image 100 measure 4.0 x 4.5 cm in diameter. No enhancement is seen after contrast administration. Bowel is not well assessed by CT angiography as enteric contrast is not given. No obvious bowel dilation is identified. Diverticular disease is seen in the descending and sigmoid colon with no evidence of acute diverticulitis. Once again of note, there is small fat-containing inguinal hernia is seen, left greater than right. No free air or free fluid seen in the abdomen and pelvis. The prostate isnot identified and in addition, surgical clips are seen indicating prior prostatectomy, likely with associated lymph node dissection. The bladder appears grossly unremarkable and is not distended. No significant retroperitoneal adenopathy is identified. No acute bony pathology is identified. Degenerative changes is noted. No obvious lytic or blastic lesion is present. CONCLUSIONS: 1. Patient is post abdominal aortic aneurysm exclusion via endovascular stent graft. The stent graft is well positioned and widely patent with no evidence of endoleak. Dimensions are as described above. Maximum aneurysm diameter is 4.5 x 3.8 cm. Quantitative aneurysm volume is 109 cc, decreased from 118 cc on the prior study, remeasured, confirming interval reduction in size by volumetric measurement. 2. Widely patent mesenteric and renal arteries. The ABDELRAHMAN fills retrogradely by surrounding collaterals. 3. Other findings as described above 4. An addendum will be dictated regarding the non- vascular findings by the User Experience Analyst Radiologist. Signed: Carl Chaoeport Verified Date/Time: 06/21/2017 14:40:46 Reading Location: [place] [address] Cardiology MRI 05:3 6 [id number] 14:19:00 Test Item Value Reference Range Interpretation Comments POC-CREATININE 0.9 mg/dL 0.6-1.[address] [facility] ([facility]) (test [facility] [place] code = 1859) [address] POC-EGFR ([facility]) 83 mL/min/1.73M2 (test code = 1860)
--- NOTE | 2022-06-04 14:40 | RAD REPORT ---
EXAM DESCRIPTION: US - UPPER EXTREMITY VENOUS UNILATE - 06/04/2022 2:28 pm CLINICAL HISTORY: ecchymosis Arm swelling and edema. COMPARISON: Extremity Venous [facility] dated 08/24/2018 FINDINGS: Right upper extremity venous system was interrogated with Doppler technique. Normal flow, compressibility and augmentation was noted. There is no DVT present. IMPRESSION: No evidence of right upper extremity deep venous thrombosis.
--- NOTE | 2022-06-04 14:51 | ER ---
Nurse's Notes [facility] Name: Calin Cruz Age: 77 yrs Sex: Male : 1945 Arrival Date: 06/04/2022 Time: 13:24 Bed 12 Private MD: Diagnosis: Contusion of right upper arm Presentation: 06/04 13:37 Chief complaint: Patient states: bruising to upper right arm - pt reports tenderness to ld1 right arm after taking blood pressure. Denies fall/injury. Coronavirus screen: At this time, the client does not indicate any symptoms associated with coronavirus-19. Ebola Screen: No symptoms or risks identified at this time. Initial Sepsis Screen: Does the patient meet any 2 criteria? No. Patient's initial sepsis screen is negative. Does the patient have a suspected source of infection? No. Patient's initial sepsis screen is negative. Risk Assessment: Do you want to hurt yourself or someone else? Patient reports no desire to harm self or others. Onset of symptoms was June 04, 2022. 13:37 Method Of Arrival: Ambulatory ld1 13:37 Acuity: NOLVIA 3 ld1 Triage Assessment: 13:39 General: Appears in no apparent distress. comfortable, Behavior is calm, cooperative, ld1 appropriate for age. Pain: Denies pain. EENT: No signs and/or symptoms were reported regarding the EENT system. Neuro: Level of Consciousness is awake, alert, obeys commands, Oriented to person, place, time, situation, Appropriate for age. Cardiovascular: Capillary refill < 3 seconds Patient's skin is warm and dry. Respiratory: Airway is patent Respiratory effort is even, unlabored. GI: Abdomen is flat, non-distended. : No signs and/or symptoms were reported regarding the genitourinary system. Derm: Bruising that is dark purple, yellow, on anterior aspect of right shoulder and right bicep. Historical: - Allergies: 13:39 No Known Allergies; ld1 - Home Meds: 13:39 Eliquis 2.5 mg oral tab 1 tab 2 times per day [Active]; amiodarone 200 mg Oral tab 1 ld1 tab once daily [Active]; furosemide 40 mg Oral tab 1 tab once daily [Active]; amlodipine 5 mg tab 1 tab once daily [Active]; potassium chloride 20 mEq/15 mL Oral liqd 15 mL once daily [Active]; aspirin 81 mg Oral cap 1 cap once daily [Active]; glucosamine-chondroitin 1,500-1,200 mg/30 mL oral liqd [Active]; - PMHx: 13:39 Atrial fibrillation; CHF; Hypertensive disorder; Prostate cancer; ld1 - PSHx: 13:39 Vasectomy; Prostate removal; ld1 - Immunization history:: Adult Immunizations up to date, Client reports receiving the 2nd dose of the Covid vaccine. - Social history:: Smoking status: Patient/guardian denies using tobacco, the patient reports quitting approximately 15 years ago, Patient/guardian denies using alcohol. Screenin:10 Abuse screen: Denies threats or abuse. Denies injuries from another. Nutritional ph screening: No deficits noted. Tuberculosis screening: No symptoms or risk factors identified. Fall Risk None identified. Assessment: 15:11 General: Appears in no apparent distress. comfortable, well groomed, Behavior is calm, ph cooperative, appropriate for age. Pain: Complains of pain in right bicep. Neuro: Level of Consciousness is awake, alert, obeys commands, Oriented to person, place, time, situation. Cardiovascular: Capillary refill < 3 seconds in bilateral fingers Patient's skin is warm and dry. Respiratory: Airway is patent Respiratory effort is even, unlabored. Derm: Skin is fragile, is thin, Skin is pink, warm \T\ dry. Bruising that is dark purple, on right bicep and anterior aspect of right shoulder. Musculoskeletal: Circulation, motion, and sensation intact. Range of motion: intact in all extremities. Vital Signs: 13:37 BP 146 / 72; Pulse 64; Resp 18; Temp 97.8(TE); Pulse Ox 98% on R/A; Weight 95.25 kg; ld1 Height 6 ft. 3 in. (190.50 cm); Pain 0/10; 15:12 BP 132 / 78; Pulse 67; Resp 18; Temp 97.4; Pulse Ox 99% on R/A; ph 13:37 Body Mass Index 26.25 (95.25 kg, 190.50 cm) ld1 ED Course: 13:24 Patient arrived in ED. mr 13:26 Chanel Christianson FNP-C [facility]. kb 13:26 Lane Moreno MD is Attending Physician. kb 13:39 Triage completed. ld1 13:39 Arm band placed on right wrist. ld1 14:30 UPPER EXTREMITY VENOUS UNILATE In Process Unspecified. EDMS 14:47 Gini Garcia, RN is Primary Nurse. ph 15:11 Patient has correct armband on for positive identification. Call light in reach. ph 15:11 No provider procedures requiring assistance completed. Patient did not have IV access ph during this emergency room visit. Administered Medications: No medications were administered Medication: 15:11 VIS not applicable for this client. ph Outcome: 14:51 Discharge ordered by MD. kb 15:11 Discharged to home ambulatory. ph 15:11 Condition: good 15:11 Discharge instructions given to patient, Instructed on discharge instructions, follow up and referral plans. Demonstrated understanding of instructions, follow-up care. 15:13 Patient left the ED. ph Signatures: Dispatcher [employer] EDHI Chanel Christianson, [employer]-Lizet Jorge ALilian mr Gini Garcia, RN RN Payton Gutierrez RN RN ld1
--- NOTE | 2022-06-04 14:52 | EDPHYS ---
Physician Documentation [facility] Name: Calin Cruz Age: 77 yrs Sex: Male : 1945 Arrival Date: 06/04/2022 Time: 13:24 Bed 12 Private MD: ED Physician Lane Moreno HPI: 06/04 14:53 This 77 yrs old Male presents to ER via Ambulatory with complaints of Arm bruising. kb 14:53 The patient or guardian complains of contusion. The complaints affect the right tricep. kb Context: The problem was sustained at home, resulted from blood pressure cuff. Onset: The symptoms/episode began/occurred 4 day(s) ago. Treatment prior to arrival includes: no previous treatment. Modifying factors: The symptoms are alleviated by nothing. the symptoms are aggravated by nothing. Associated signs and symptoms: The patient has no apparent associated signs or symptoms. Severity of symptoms: At their worst the symptoms were moderate, in the emergency department the symptoms are unchanged. The patient has not experienced similar symptoms in the past. The patient has not recently seen a physician. Historical: - Allergies: 13:39 No Known Allergies; ld1 - Home Meds: 13:39 Eliquis 2.5 mg oral tab 1 tab 2 times per day [Active]; amiodarone 200 mg Oral tab 1 ld1 tab once daily [Active]; furosemide 40 mg Oral tab 1 tab once daily [Active]; amlodipine 5 mg tab 1 tab once daily [Active]; potassium chloride 20 mEq/15 mL Oral liqd 15 mL once daily [Active]; aspirin 81 mg Oral cap 1 cap once daily [Active]; glucosamine-chondroitin 1,500-1,200 mg/30 mL oral liqd [Active]; - PMHx: 13:39 Atrial fibrillation; CHF; Hypertensive disorder; Prostate cancer; ld1 - PSHx: 13:39 Vasectomy; Prostate removal; ld1 - Immunization history:: Adult Immunizations up to date, Client reports receiving the 2nd dose of the Covid vaccine. - Social history:: Smoking status: Patient/guardian denies using tobacco, the patient reports quitting approximately 15 years ago, Patient/guardian denies using alcohol. ROS: 14:52 Constitutional: Negative for fever, chills, and weight loss. kb 14:52 Skin: Positive for ecchymosis, of the right tricep. 14:52 All other systems are negative. Exam: 14:52 Constitutional: This is a well developed, well nourished patient who is awake, alert, kb and in no acute distress. Head/Face: Normocephalic, atraumatic. ENT: Moist Mucous membranes Cardiovascular: Regular rate and rhythm with a normal S1 and S2. No gallops, murmurs, or rubs. No pulse deficits. Respiratory: Respirations even and unlabored. No increased work of breathing. Talking in full sentences MS/ Extremity: Pulses equal, no cyanosis. Neurovascular intact. Full, normal range of motion. Neuro: Awake and alert, GCS 15, oriented to person, place, time, and situation. Moves all extremities. Normal gait. Psych: Awake, alert, with orientation to person, place and time. Behavior, mood, and affect are within normal limits. 14:52 Skin: injury, contusion(s), that are superficial, of the right tricep. Vital Signs: 13:37 BP 146 / 72; Pulse 64; Resp 18; Temp 97.8(TE); Pulse Ox 98% on R/A; Weight 95.25 kg; ld1 Height 6 ft. 3 in. (190.50 cm); Pain 0/10; 15:12 BP 132 / 78; Pulse 67; Resp 18; Temp 97.4; Pulse Ox 99% on R/A; ph 13:37 Body Mass Index 26.25 (95.25 kg, 190.50 cm) ld1 MDM: 13:39 Patient medically screened. kb 14:52 Data reviewed: vital signs, nurses notes. Data interpreted: Pulse oximetry: on room air kb is 98 %. Interpretation: normal. Counseling: I had a detailed discussion with the patient and/or guardian regarding: the historical points, exam findings, and any diagnostic results supporting the discharge/admit diagnosis, radiology results, the need for outpatient follow up, a family practitioner, to return to the emergency department if symptoms worsen or persist or if there are any questions or concerns that arise at home. 06/04 14:00 Order name: UPPER EXTREMITY VENOUS UNILATE; Complete Time: 14:42 EDMS Administered Medications: No medications were administered Disposition Summary: 06/04/22 14:51 Discharge Ordered Location: Home kb Condition: Stable kb Diagnosis - Contusion of right upper arm kb Followup: kb - With: Emergency Department - When: As needed - Reason: Worsening of condition Followup: kb - With: Private Physician - When: 2 - 3 days - Reason: Recheck today's complaints, Continuance of care, Re-evaluation by your physician Discharge Instructions: - Discharge Summary Sheet kb - Contusion, [id number] kb Forms: - Medication Reconciliation Form kb - Thank You Letter kb - Antibiotic Education kb - Prescription Opioid Use kb Signatures: Dispatcher [employer] EDChanel Reddy FNP-C LUISANA-Payton Washburn, RN RN ld1 Corrections: (The following items were deleted from the chart) 14:00 13:40 Extremity Venous Uni [email or web address] ordered. EDHI EDHI
[2022-06-04 15:54] VITALS: BP 132/78; TEMP 97.4; O2SAT 99
== END 2022-06-04 15:13 | disposition home or self-care (01) ==
LOC: ER 13:17
DX: S40.021A Contusion of right upper arm, initial encounter (principal)
CPT/HCPCS: 93971; 99283

== ENCOUNTER 2024-11-18 15:21 | Emergency (ER) | payer OTHER ==
[2024-11-18] MEDS ORDERED: METHYLPREDNISOLONE 125 MG INJ ONE (16:11)
[2024-11-18] MEDS ORDERED: IPRATROPIUM BROM 0.5MG/2.5ML ONE ×2 (16:11→18:09)
[2024-11-18] MEDS ORDERED: ALBUTEROL 2.5 MG/3 ML NEB SOL ONE ×2 (16:11→18:09)
[2024-11-18 16:33] LABS: Absolute Eosinophils 0.1 K/uL (0-0.5); Absolute Monocytes 0.8 K/uL (0.1-1.3); Absolute Neutrophil 4.9 K/uL (1.8-8.0); Basophils % 0.6 % (0-1.3); Eosinophils % 1.4 % (0-4.4); Hematocrit 29.7 % (39.6-49.0); Hemoglobin 10.2 g/dL (13.6-17.9); Lymphocytes % 14.9 % (15.3-44.8); MCH 37.6 pg (27.0-35.0); MCHC 34.5 g/dL (32.0-36.0); MPV 8.5 fL (7.6-11.3); Monocytes % 11.8 % (3.3-12.3); Neutrophils % 71.3 % (41.7-73.7); Nucleated Red Blood Cells % 0.2 % (0-0); Platelets 217 thou/uL (152-406); RBC Red Blood Cell Count 2.72 M/uL (4.33-5.43); Red Cell Distribution Width 14.4 % (12.1-15.2)
--- NOTE | 2024-11-18 16:39 | RAD REPORT ---
Procedure: Chest Single View HISTORY: Shortness of breath COMPARISON: 2022 FINDINGS: The lungs appear clear of acute infiltrate. No significant pleural effusion noted. The heart is borderline enlarged. Aorta is tortuous. Old right clavicular fracture. IMPRESSION: No acute abnormality is displayed.
[2024-11-18 16:52] LABS: Albumin 3.9 g/dL (3.4-5.0); Albumin/Globulin Ratio 1.2 (1.1-1.8); Anion Gap 6.4 mEq/L (5.0-15.0); Bilirubin Direct 0.2 mg/dL (0-0.2); Bilirubin Indirect, Calculated 0.2 mg/dL (0.2-0.8); Bilirubin Total 0.4 mg/dL (0.2-1.0); Globulin 3.2 g/dL (2.3-3.5); Potassium 4.4 mEq/L (3.5-5.1); Protein, Total 7.1 g/dL (6.4-8.2); Troponin High Sensitivity 15.6 pg/mL (<58.9)
[2024-11-18 17:25] LABS: Blood Morphology Comment NOTED (NOT SEEN); Macrocytosis SLIGHT; Platelet Estimate ADEQ; White Blood Cell Scan OK (OK)
--- NOTE | 2024-11-18 17:48 | ER ---
Nurse's Notes [facility] Name: Calin Cruz Age: 79 yrs Sex: Male : 1945 Arrival Date: 11/18/2024 Time: 15:21 Bed 14 Private MD: Diagnosis: COPD/ Chronic obstructive pulmonary disease with (acute) exacerbation Presentation: 11/18 15:30 Chief complaint: SOB since last night. On 2LNC home O2. Coronavirus screen: At this hb time, the client does not indicate any symptoms associated with coronavirus-19. Ebola Screen: No symptoms or risks identified at this time. Initial Sepsis Screen: Does the patient meet any 2 criteria? No. Patient's initial sepsis screen is negative. Does the patient have a suspected source of infection? No. Patient's initial sepsis screen is negative. Risk Assessment: Do you want to hurt yourself or someone else? Patient reports no desire to harm self or others. Onset of symptoms was November 17, 2024. 15:30 Method Of Arrival: Ambulatory hb 15:30 Acuity: NOLVIA 3 hb Triage Assessment: 15:33 General: Appears in no apparent distress. comfortable, Behavior is cooperative, bp appropriate for age, anxious. Pain: Denies pain. EENT: No deficits noted. Neuro: Level of Consciousness is awake, alert, obeys commands, Oriented to Appropriate for age. Cardiovascular: Rhythm is sinus rhythm. Respiratory: Reports shortness of breath at rest Onset: The symptoms/episode began/occurred at an unknown time. the patient has moderate shortness of breath. GI: No signs and/or symptoms were reported involving the gastrointestinal system. : No signs and/or symptoms were reported regarding the genitourinary system. Derm: No deficits noted. Musculoskeletal: No deficits noted. Historical: - Allergies: 15:39 Statins; hb - Home Meds: 15:39 hydroxychloroquine 200 mg oral tablet 2 times per day [Active]; amiodarone 200 mg Oral hb tablet daily [Active]; apixaban 2.5 mg oral tablet 2 times per day [Active]; furosemide 40 mg Oral tablet daily [Active]; sulfasalazine 500 mg Oral tablet, delayed release (enteric coated) 2 tabs 2 times per day [Active]; amlodipine 10 mg tablet daily [Active]; Repatha SureClick 140 mg/mL subcutaneous Pen Injector every 2 weeks [Active]; potassium chloride 20 mEq Oral Packet daily [Active]; aspirin 81 mg Oral tablet daily [Active]; Vitamin D Oral 1,000 unit nightly [Active]; glucosamine-chondroitin oral [Active]; levothyroxine 25 mcg capsule daily [Active]; Zoloft 50 mg Oral tablet daily [Active]; Vitamin C 1,000 mg Oral tablet daily [Active]; Ferrocite 324 mg (106 mg iron) oral tablet daily [Active]; One-A-Day Men's Complete 240 mcg-30 mcg- 300 mcg oral tablet daily [Active]; - PMHx: 15:33 Atrial fibrillation; CHF; Hypertensive disorder; Prostate Cancer; hb 15:34 RBBB; AAA; GI Bleed; hb - PSHx: 15:33 prostate removal; Vasectomy; hb 15:34 Back Surgery; hb - Immunization history:: Adult Immunizations up to date. - Infectious Disease History:: Denies. - Social history:: Smoking status: Patient/guardian denies using tobacco, the patient reports quitting approximately 19 years ago. - Family history:: not pertinent. Screenin:45 [facility] ED Fall Risk Assessment (Adult) History of falling in the last 3 months, bp including since admission No falls in past 3 months (0 pts) Confusion or Disorientation No (0 pts) Intoxicated or Sedated No (0 pts) Impaired Gait No (0 pts) Mobility Assist Device Used Yes (1 pt) Altered Elimination No (0 pt) Score/Fall Risk Level 0 - 2 = Low Risk Oriented to surroundings. Abuse screen: Denies threats or abuse. Denies injuries from another. Nutritional screening: No deficits noted. Tuberculosis screening: No symptoms or risk factors identified. Assessment: 15:45 General: Appears in no apparent distress. comfortable, Behavior is calm, cooperative, bp appropriate for age. Pain: Denies pain. Neuro: No deficits noted. Cardiovascular: Rhythm is sinus rhythm. Respiratory: Airway is patent Respiratory effort is even, unlabored, Breath sounds are coarse bilaterally. GI: No signs and/or symptoms were reported involving the gastrointestinal system. : No signs and/or symptoms were reported regarding the genitourinary system. EENT: No deficits noted. Derm: No deficits noted. Musculoskeletal: No deficits noted. 18:17 Reassessment: Patient appears in no apparent distress at this time. Patient is alert, bp oriented x 3, equal unlabored respirations, skin warm/dry/pink. Vital Signs: 15:30 BP 173 / 78; Pulse 71; Resp 21; Temp 97.8(O); Pulse Ox 94% on 2 lpm NC; Weight 97.07 hb kg; Height 6 ft. 2 in. ; Pain 0/10; 18:18 BP 119 / 53; Pulse 72; Resp 15; Pulse Ox 97% ; bp 15:30 Body Mass Index 27.48 (97.07 kg, 187.96 cm) hb 15:30 Pain Scale: Adult hb ED Course: 15:22 Patient arrived in ED. im 15:22 Neto Galaviz, PRISCILLA is Primary Nurse. bp 15:24 Reggie Barroso MD is Attending Physician. rt 15:31 Triage completed. hb 15:45 Arm band placed on. hb 15:45 Patient has correct armband on for positive identification. bp 16:15 XRAY Chest (1 view) In Process Unspecified. EDMS 16:22 Initial lab(s) drawn, by me, sent to lab. EKG done, by ED staff, reviewed by Reggie Barroso MD. Inserted saline lock: 20 gauge in right antecubital area, using aseptic technique. Blood collected. Flushed with 10 mL NS. 18:17 No provider procedures requiring assistance completed. IV discontinued, intact, bp bleeding controlled, No redness/swelling at site. Pressure dressing applied. Administered Medications: 16:21 Drug: Albuterol Inhalation 2.5 mg Inhalation once Route: Inhalation; bp 16:21 Drug: Ipratropium Inhalation Aerosol 0.5 mg Inhalation once Route: Inhalation; bp 16:21 Drug: MethylPrednisoLONE IVP 125 mg IVP once Route: IVP; Site: right antecubital; bp 18:16 Follow up: Response: No adverse reaction bp Medication: 15:45 VIS not applicable for this client. bp Outcome: 17:48 Discharge ordered by . rt 18:17 Discharged to home ambulatory, with family, bp 18:17 Condition: stable 18:17 Discharge instructions given to patient, family, Instructed on discharge instructions, follow up and referral plans. medication usage, Demonstrated understanding of instructions, follow-up care, medications, Prescriptions given X 3, 18:19 Patient left the ED. bp Signatures: Dispatcher [email or web address] EDMS Lidia Coffey RN RN hb Neto Galaviz RN RN bp Reggie Barroso MD MD rt Liss Stone Corrections: (The following items were deleted from the chart) 15:32 15:30 BP 173 / 78; Pulse 71bpm; Resp 24bpm; Pulse Ox 94% 2 lpm Nasal Cannula; Temp hb 97.8F Oral; 97.07 kg; Height 6 ft. 2 in.; BMI: 27.4; Pain 0/10, Adult; hb 15:32 15:30 Acuity: NOLVIA 2 hb hb 15:33 15:30 BP 173 / 78; Pulse 71bpm; Resp 21bpm; Pulse Ox 94% 2 lpm Nasal Cannula; Temp hb 97.8F Oral; 97.07 kg; Height 6 ft. 2 in.; BMI: 27.4; Pain 0/10, Adult; hb 15:45 15:33 PMHx: CAD (Vasectomy); hb hb 15:45 15:39 Allergies: STATINS HMG COA REDUCTASE INHIBITORS; hb hb
--- NOTE | 2024-11-18 17:48 | EDPHYS ---
Physician Documentation [facility] Name: Calin Cruz Age: 79 yrs Sex: Male : 1945 Arrival Date: 11/18/2024 Time: 15:21 Bed 14 Private MD: ED Physician Reggie Barroso HPI: 11/18 17:55 This 79 yrs old Male presents to ER via Ambulatory with complaints of Shortness Of rt Breath. 17:55 Patient presents to the ED with dyspnea. rt 17:56 Starting last night, patient reportedly has a history of COPD, used albuterol once to rt no relief. Denies aggravating or alleviating factors. Denies cough, chest pain, acute complaints, symptoms are moderate in severity, no other aggravating or alleviating factors.. Historical: - Allergies: 15:39 Statins; hb - Home Meds: 15:39 hydroxychloroquine 200 mg oral tablet 2 times per day [Active]; amiodarone 200 mg Oral hb tablet daily [Active]; apixaban 2.5 mg oral tablet 2 times per day [Active]; furosemide 40 mg Oral tablet daily [Active]; sulfasalazine 500 mg Oral tablet, delayed release (enteric coated) 2 tabs 2 times per day [Active]; amlodipine 10 mg tablet daily [Active]; Repatha SureClick 140 mg/mL subcutaneous Pen Injector every 2 weeks [Active]; potassium chloride 20 mEq Oral Packet daily [Active]; aspirin 81 mg Oral tablet daily [Active]; Vitamin D Oral 1,000 unit nightly [Active]; glucosamine-chondroitin oral [Active]; levothyroxine 25 mcg capsule daily [Active]; Zoloft 50 mg Oral tablet daily [Active]; Vitamin C 1,000 mg Oral tablet daily [Active]; Ferrocite 324 mg (106 mg iron) oral tablet daily [Active]; One-A-Day Men's Complete 240 mcg-30 mcg- 300 mcg oral tablet daily [Active]; - PMHx: 15:33 Atrial fibrillation; CHF; Hypertensive disorder; Prostate Cancer; hb 15:34 RBBB; AAA; GI Bleed; hb - PSHx: 15:33 prostate removal; Vasectomy; hb 15:34 Back Surgery; hb - Immunization history:: Adult Immunizations up to date. - Infectious Disease History:: Denies. - Social history:: Smoking status: Patient/guardian denies using tobacco, the patient reports quitting approximately 19 years ago. - Family history:: not pertinent. ROS: 17:56 Constitutional: Negative for fever, chills, and weight loss, Cardiovascular: Negative rt for chest pain, palpitations, and edema, Abdomen/GI: Negative for abdominal pain, nausea, vomiting, diarrhea, and constipation, MS/Extremity: Negative for injury and deformity, Skin: Negative for injury, rash, and discoloration, Neuro: Negative for headache, weakness, numbness, tingling, and seizure, 17:56 Respiratory: Positive for shortness of breath, Negative for dyspnea on exertion, Exam: 17:56 Respiratory: Faint wheezes heard diffusely, no respiratory distress, rt 17:56 Constitutional: This is a well developed, well nourished patient who is awake, alert, rt and in no acute distress. Head/Face: Normocephalic, atraumatic. Chest/axilla: Normal chest wall appearance and motion. Nontender with no deformity. No lesions are appreciated. Cardiovascular: Regular rate and rhythm with a normal S1 and S2. No gallops, murmurs, or rubs. Normal PMI, no JVD. No pulse deficits. Abdomen/GI: Soft, non-tender, with normal bowel sounds. No distension or tympany. No guarding or rebound. No evidence of tenderness throughout. Skin: Warm, dry with normal turgor. Normal color with no rashes, no lesions, and no evidence of cellulitis. MS/ Extremity: Pulses equal, no cyanosis. Neurovascular intact. Full, normal range of motion. Neuro: Awake and alert, GCS 15, oriented to person, place, time, and situation. Cranial nerves II-XII grossly intact. Motor strength 5/5 in all extremities. Sensory grossly intact. Cerebellar exam normal. Normal gait. 17:56 ECG was reviewed by the Attending Physician. Vital Signs: 15:30 BP 173 / 78; Pulse 71; Resp 21; Temp 97.8(O); Pulse Ox 94% on 2 lpm NC; Weight 97.07 hb kg; Height 6 ft. 2 in. ; Pain 0/10; 18:18 BP 119 / 53; Pulse 72; Resp 15; Pulse Ox 97% ; bp 15:30 Body Mass Index 27.48 (97.07 kg, 187.96 cm) hb 15:30 Pain Scale: Adult hb MDM: 15:34 Medical Screening Exam initiated rt 17:56 Differential diagnosis: COPD, CHF, pneumonia. Data reviewed: vital signs, nurses notes, rt lab test result(s), EKG, radiologic studies. Consideration of Admission/Observation Escalation of care including admission/observation considered. Patient is not hypoxic, chest x-ray, workup is benign, symptoms are significant improving with bronchodilators, no indications for admission at this time, stable for outpatient care with his junior network engineer, return precautions discussed.. I considered the following discharge prescriptions or medication management in the emergency department Medications were administered in the Emergency Department. See MAR. Independent interpretation of the following test(s) in the Emergency Department X-Ray: My interpretation is No infiltrate seen on interpretation of x-ray images. Test considered but Not performed: CT: Low suspicion for pulmonary embolus, CT angiogram is not indicated. Care significantly affected by the following chronic conditions: Congestive Heart Failure, Chronic Obstructive Pulmonary Disease. Counseling: I had a detailed discussion with the patient and/or guardian regarding the historical points, exam findings, and any diagnostic results supporting the discharge/admit diagnosis, lab results, radiology results, the need for outpatient follow up, to return to the emergency department if symptoms worsen or persist or if there are any questions or concerns that arise at home. Response to treatment: the patient's symptoms have markedly improved after treatment. 11/18 15:43 Order name: Basic Metabolic Panel; Complete Time: 16:55 rt 11/18 15:43 Order name: CBC with Diff; Complete Time: 17:26 rt 11/18 15:43 Order name: LFT's; Complete Time: 16:55 rt 11/18 15:43 Order name: NT PRO-BNP; Complete Time: 16:55 rt 11/18 15:43 Order name: Troponin HS; Complete Time: 16:55 rt 11/18 17:25 Order name: CBC Smear Scan; Complete Time: 17:26 EDMS 11/18 15:43 Order name: XRAY Chest (1 view); Complete Time: 16:55 rt 11/18 15:43 Order name: EKG; Complete Time: 15:43 rt 11/18 15:43 Order name: Cardiac monitoring; Complete Time: 16:21 rt 11/18 15:43 Order name: EKG - Nurse/Tech; Complete Time: 16:21 rt 11/18 15:43 Order name: IV Saline Lock; Complete Time: 16: rt 11/18 15:43 Order name: Labs collected and sent; Complete Time: : rt 11/18 15:43 Order name: O2 Per Protocol; Complete Time: 16: rt 11/18 15:43 Order name: O2 Sat Monitoring; Complete Time: 16:21 rt EC:56 Rate is 63 beats/min. Rhythm is regular, 1st Degree Block with Right bundle branch rt block. Left axis deviation noted. MA interval is prolonged at 262 msec. QRS interval is normal. QT interval is normal. No Q waves. Administered Medications: 16: Drug: Albuterol Inhalation 2.5 mg Inhalation once Route: Inhalation; bp 16:21 Drug: Ipratropium Inhalation Aerosol 0.5 mg Inhalation once Route: Inhalation; bp 16:21 Drug: MethylPrednisoLONE IVP 125 mg IVP once Route: IVP; Site: right antecubital; bp 18:16 Follow up: Response: No adverse reaction bp Disposition Summary: 11/18/24 17:48 Discharge Ordered Notes: Location: Home rt Problem: new rt Symptoms: have improved rt Condition: Stable rt Diagnosis - COPD/ Chronic obstructive pulmonary disease with (acute) exacerbation rt Followup: rt - With: Private Physician - When: 2 - 3 days - Reason: Discharge Instructions: - Discharge Summary Sheet rt - Chronic Obstructive Pulmonary Disease rt Forms: - Medication Reconciliation Form rt - Antibiotic Education rt - Prescription Opioid Use rt - Patient Portal Instructions rt - Leadership Thank You Letter rt Prescriptions: - albuterol sulfate 2.5 mg /3 mL (0.083 %) Inhalation Solution for Nebulization - nebulize 3 milliliter INHALATION route every 4 hours as needed for shortness of rt breath or wheezing; 90 milliliter; Refills: 0, Product Selection Permitted - Prednisone 20 mg Oral Tablet - take 2 tablets ORAL route once daily for 5 days; 10 tablet; Refills: 0, Product rt Selection Permitted Signatures: Dispatcher [employer] EDLidia Perrin RN RN hb Neto Galaviz RN RN bp Reggie Barroso MD MD rt Corrections: (The following items were deleted from the chart) 15:45 15:33 PMHx: CAD (Vasectomy); hb hb 15:45 15:39 Allergies: STATINS HMG COA REDUCTASE INHIBITORS; hb hb
[2024-11-18 18:51] VITALS: TEMP 97.8
[2024-11-18 18:57] VITALS: BP 119/53; O2SAT 97
--- NOTE | 2024-11-20 10:52 | EKG ---
Test Date: 2024-11-18 Test Time: 16:06:46 Ankle Patch Molder: BP MEASUREMENT RESULTS: Intervals: Rate: 63 NE: 262 QRSD: 172 QT: 458 QTc: 468 [place]: P: 44 NE: 262 QRS: -47 T: -3 INTERPRETIVE STATEMENTS: Sinus rhythm with 1st degree AV block with premature atrial complexes Right bundle branch block Left anterior fascicular block Bifascicular block Abnormal ECG Compared to ECG 05/28/2023 09:02:31 Atrial premature complex(es) now present Left ventricular hypertrophy no longer present Bifascicular block still present Electronically Signed On 11-20-24 10:48:24 CDT by Bronson Mancilla
== END 2024-11-18 18:19 | disposition home or self-care (01) ==
LOC: ER 15:21
DX: J44.1 Chronic obstructive pulmonary disease with (acute) exacerbation (principal); I50.9 Heart failure, unspecified; I10 Essential (primary) hypertension; I48.91 Unspecified atrial fibrillation; Z79.82 Long term (current) use of aspirin
CPT/HCPCS: 93005; 85025; 80048; 36415; 80076; 84484; 83880; 71045; 96374; 99285; J7613 ×2; J7644 ×2; J2919